=== PATIENT | male | born 1960 | race Caucasian/White ===

== ENCOUNTER 2017-03-02 13:58 | Inpatient (IN) ==
[2017-03-02] MEDS ORDERED: Ipratropium/Albuterol Neb 3 ML IH ONE (14:13)
[2017-03-02] MEDS ORDERED: methylPREDNISolone 125 MG/2 ML VIAL IVP ONE (14:18)
--- NOTE | 2017-03-02 14:20 | Emergency Department Note ---
Disposition Clinical Impression: Bronchopneumonia, Lung mass, COPD exacerbation Disposition: Admitted As Inpatient Condition: Fair General Adult HPI - General Chief complaint: ED Shortness of Breath/Dyspnea Stated complaint: SUNNY Time Seen by Provider: 03/02/17 14:07 Source: EMS Limitations: no limitations Nursing Notes Reviewed: Yes Vital Signs Reviewed: Yes - History of Present Illness HPI Narrative: 56-year-old male who reports he has had 2 weeks of cough, central chest pressure. He admits to smoking for 40 years. He denies any known history of COPD. He denies having productive sputum. He denies any new lower extremity edema. He says that his shortness of breath and cough are worse with exertion and if he lays supine. He denies knowing if he has had fever at home. He does admit to a history of chronic low back pain and hypertension. He received a DuoNeb by EMS which he said helped substantially Radiation: non-radiation Pain Severity: moderate Pain Scale: 8 Consistency: constant Improves with: nothing Associated symptoms: Reports: denies other symptoms Treatments Prior to Arrival: none - Related Data Allergies Allergy/AdvReac Type Severity Reaction Status Date / Time No Known Allergies Allergy Verified 03/02/17 13:59 All systems ED: reviewed and negative except as stated. Constitutional: Denies: fever Eyes: Denies: vision change ENT ED: Denies: throat pain Cardiovascular: Reports: chest pain ((Pressure)) Respiratory: Reports: cough, dyspnea, wheezes Gastrointestinal: Denies: abdominal pain Musculoskeletal: Reports: back pain Integumentary: Denies: rash Neurological: Denies: headache Endocrine: Reports: fatigue Past Medical History - Past Medical History Medical history: Reports: hypertension Psychiatric history: Reports: no psych history - Social History Smoking Status: Current every day smoker Smokeless Tobacco Status: No Alcohol use: Reports: occasionally Drug use: Reports: none Physical Exam - General Limitations: no limitations General appearance: alert, in distress - Head Head exam: atraumatic - Eye Eye exam: Present: normal appearance, PERRL - ENT ENT exam: normal exam, normal oropharynx - Neck Neck exam: Present: normal inspection - Chest Chest inspection: Present: normal inspection - Respiratory Respiratory exam: Present: other (Course lung sounds in the bases and symmetric or wheezes) - Abdominal Exam Abdominal exam: Present: soft, Non-Tender - Extremities Exam Extremities exam: Present: pedal edema (1+ pedal edema equal bilaterally) - Neurological Exam Neurological exam: Present: alert, oriented X3 - Psychiatric Psychiatric exam: Present: normal affect, normal mood Course Course Narrative: After duoneb treatment he has significantly more wheezing. Gave more albuterol and magnesium which improved it. CTA shows a lung mass and bronchopneumonia. SPO2 is maintained on nasal cannula. He does have increased work of breathing but no distress. VBG is stable. Will admit. [facility] accepts. Vital Signs Temperature 100.9 F H 03/02/17 14:00 Pulse Rate 85 03/02/17 14:00 Respiratory Rate 20 03/02/17 14:00 Blood Pressure 166/104 03/02/17 14:00 O2 Sat by Pulse Oximetry 96 03/02/17 14:00 Temperature 100.9 F H 03/02/17 14:00 Pulse Rate 84 03/02/17 15:40 Respiratory Rate 18 03/02/17 16:21 Blood Pressure 145/83 03/02/17 16:21 O2 Sat by Pulse Oximetry 96 03/02/17 15:40 Oxygen Delivery Oxygen Delivery Simple Mask Medical Decision Making - Medical Records Medical records reviewed: Yes I reviewed the patient's medical records. - Lab Data Lab results reviewed: Yes I reviewed the patient's lab results. Result diagrams: 03/02/17 14:10 03/02/17 14:10 Lab Results 03/02/17 03/02/17 03/02/17 Range/Units 14:10 14:10 14:10 WBC 9.5 (4.3-11.1) K/mcL RBC 4.78 (4.19-5.50) M/mcL Hgb 15.5 (12.9-16.9) g/dL Hct 46.0 (37.5-50.1) % MCV 96.2 (83.0-100.0) fL MCH 32.4 (28.0-33.3) pg MCHC 33.7 (31.6-35.5) g/dL RDW 15.6 H (11.5-14.5) % Plt Count 252 (140-400) K/mcL MPV 9.4 (9.4-12.4) fL Immature Gran % 0.3 (0-4) % Seg Neutrophils % 69.5 % Lymphocytes % 15.7 % Monocytes % 14.0 % Eosinophils % 0.2 % Basophils % 0.3 % Neutrophils # 6.6 (1.6-8.9) K/mcL Lymphocytes # 1.5 (0.6-4.6) K/mcL Monocytes # 1.3 (0.0-1.3) K/mcL Eosinophils # 0.0 (0.0-0.6) K/mcL Basophils # 0.0 (0.0-0.2) K/mcL D-Dimer (0-500) ng/mLFEU Sodium 136 (136-145) mEq/L Potassium 3.2 L (3.5-5.1) mEq/L Chloride 101 (98-107) mEq/L Carbon Dioxide 27 (23-29) mEq/L BUN 10 (6-20) mg/dL Creatinine 0.78 (0.70-1.30) mg/dL Est GFR ( Amer) > 60 (> 60) Est GFR (Non-Af Amer) > 60 (> 60) BUN/Creatinine Ratio 13 (6-26) Glucose 110 H (70-105) mg/dL Calculated Osmolality 282 (280-300) Lactic Acid (0.5-2.2) mmol/L Calcium 8.7 (8.6-10.3) mg/dL Troponin I < 0.03 (< 0.04) ng/mL B-Natriuretic Peptide (Less than 100) pg/mL 03/02/17 03/02/17 03/02/17 Range/Units 14:10 14:10 14:27 WBC (4.3-11.1) K/mcL RBC (4.19-5.50) M/mcL Hgb (12.9-16.9) g/dL Hct (37.5-50.1) % MCV (83.0-100.0) fL MCH (28.0-33.3) pg MCHC (31.6-35.5) g/dL RDW (11.5-14.5) % Plt Count (140-400) K/mcL MPV (9.4-12.4) fL Immature Gran % (0-4) % Seg Neutrophils % % Lymphocytes % % Monocytes % % Eosinophils % % Basophils % % Neutrophils # (1.6-8.9) K/mcL Lymphocytes # (0.6-4.6) K/mcL Monocytes # (0.0-1.3) K/mcL Eosinophils # (0.0-0.6) K/mcL Basophils # (0.0-0.2) K/mcL D-Dimer 407 (0-500) ng/mLFEU Sodium (136-145) mEq/L Potassium (3.5-5.1) mEq/L Chloride (98-107) mEq/L Carbon Dioxide (23-29) mEq/L BUN (6-20) mg/dL Creatinine (0.70-1.30) mg/dL Est GFR ( Amer) (> 60) Est GFR (Non-Af Amer) (> 60) BUN/Creatinine Ratio (6-26) Glucose (70-105) mg/dL Calculated Osmolality (280-300) Lactic Acid 1.8 (0.5-2.2) mmol/L Calcium (8.6-10.3) mg/dL Troponin I (< 0.04) ng/mL B-Natriuretic Peptide 345 H (Less than 100) pg/mL - Radiology Data Radiology results reviewed: Yes I reviewed the patient's radiology results. - EKG Data EKG #1 EKG attestation: Yes I reviewed and interpreted this EKG. EKG shows normal: sinus rhythm Rate: normal Attestation Statement - Attestation Attestation: I examined this patient and my medical decision-making was reviewed with the Resident Physician. I agree with the documented findings, disposition and treatment plan as described except to the extent set forth below. Patient presents to the ED complaining of shortness of breath. Increasing over the past 2 weeks. Worse with exertion and states supine position. Patient has a significant smoking history. Patient is visibly dyspneic on exam with accessory muscle use and tachypnea. Diffuse wheezing. Plan. Patient improved with nebs. Still hypoxic on 3 L. We will try another neb. Increase oxygen. Flu swab pending. Cardiac workup is unremarkable. He does have a new right bundle-branch block on EKG. Patient will be admitted. CTA pending. Bronchopneumonia on CTA. Mass. Patient is given taken to the floor. Levaquin was ordered. We will discuss with hospitalist.
[2017-03-02 14:21] LABS: Basophils % 0.3 %; Eosinophils % 0.2 %; Hemoglobin 15.5 g/dL (12.9-16.9); Immature Granulocytes % 0.3 % (0-4); Lymphocytes # 1.5 K/mcL (0.6-4.6); Lymphocytes % 15.7 %; Mean Corpuscular HGB Conc 33.7 g/dL (31.6-35.5); Mean Corpuscular Hemoglobin 32.4 pg (28.0-33.3); Mean Corpuscular Volume 96.2 fL (83.0-100.0); Mean Platelet Volume 9.4 fL (9.4-12.4); Monocytes # 1.3 K/mcL (0.0-1.3); Neutrophils # 6.6 K/mcL (1.6-8.9); Platelet Count 252 K/mcL (140-400); Red Blood Count 4.78 M/mcL (4.19-5.50); Red Cell Distribution Width 15.6 % (11.5-14.5); Segmented Neutrophils % 69.5 %
[2017-03-02 14:33] LABS: BUN/Creatinine Ratio 13 (6-26); Blood Urea Nitrogen 10 mg/dL (6-20); Calcium 8.7 mg/dL (8.6-10.3); Carbon Dioxide 27 mEq/L (23-29); Chloride 101 mEq/L (98-107); Glucose 110 mg/dL (70-105); Osmolality,Calculated 282 (280-300); Potassium 3.2 mEq/L (3.5-5.1); Sodium 136 mEq/L (136-145); eGFR For African Americans > 60 (> 60); eGFR For Non-African Americans > 60 (> 60)
[2017-03-02] MEDS ORDERED: Albuterol 2.5 MG/3 ML NEBULIZER IH SCH (15:30)
[2017-03-02] MEDS ORDERED: Levofloxacin 750 MG/150 ML 750 MG/150 ML BAG IVPB ONE (16:01)
[2017-03-02 16:18] LABS: VBG HCO3 27 mEq/L (21-27); VBG PCO2 50 mmHg (41-51); VBG PH 7.34 pH Units (7.32-7.42); VBG PO2 36 mmHg (25-50)
[2017-03-02] MEDS ORDERED: Albuterol 2.5 MG/3 ML NEBULIZER IH PRN (17:01)
[2017-03-02] MEDS ORDERED: Naloxone 0.4 MG/ML INJ IVP PRN (17:20)
--- NOTE | 2017-03-02 17:27 | Internal Med History&Physical ---
<Darin Rodriguez - Last Filed: 03/02/17 20:43> Date of Encounter: 03/02/17 Time of Encounter: 17:24 Assessment and Plan (1) Bronchopneumonia Current visit: Yes Status: Acute Presents with dyspnea due to bronchopneumonia. No prior h/o structural lung disease. He was febrile on arrival otherwise no other SIRS criteria met. Does not appear septic. ABG is unremarkable. He continues to be dyspneic with activity reports more comfort with rest. He is requiring 10L HF nasal cannula to maintain Spo2 greater than 92%. -No recent hospitalizations or antibiotic use; diagnosis of CAP -Start IV levaquin now -Blodd cultures sent -CBCD, BMP in the am -Heparin 5000 units SC BID -Respiratory support per nasal cannula; goal to maintain SPO2 greater than 92% -Continuous telemetry, continuous SaO2 monitoring (2) Lung mass Current visit: Yes Status: Acute Reporting fever, chills, fatigue and night sweats for approximately the last month. Presents today with cough greater than 2 weeks as well as centralized chest sugar and dyspnea. CTA obtained in the ED negative for PE revealed left apical lung mass and bronchopneumonia. See plan above (3) COPD exacerbation Current visit: Yes Status: Acute Presents here with cough and severe dyspnea 2 weeks. Initially had inspiratory and expiratory wheezes on the emergency department. Wheezing subsided after duoneb treatment and Magnesium. Continue to be dyspneic, he has a diagnosis of bronchopneumonia. Additionally, he is not diagnosed for new left upper lobe lung mass. See plan above (4) DVT prophylaxis Current visit: Yes Status: Acute Heprin 5000 units SC BID Internal Medicine - H&P: HPI Chief complaint: dyspnea, chills, night sweats, and fatigue Admitted From: Home Plans for Post Hospital Care: Home History of present illness: Mr. Mancera is a 56 year old male with a PMH of CVA and HTN. He presents today with severe dyspnea and chest pain. Additionally the patient was complaining of severe chest pressure stating "I feel like a truck sitting on my chest". He reports he has had a cough that is coarse and nonproductive over the last 2 weeks. He is a 1-1/2 pack per day smoker for the last 40 years. Denies any prior history of COPD or emphysema. He admits to fever, chills, fatigue and severe night sweats. Denies any nausea, vomiting, diarrhea, abdominal pain or unilateral extremity swelling or pain. CTA of chest emergency department completed and showed left apical lung mass as well as bronchopneumonia. Past Med Surg Social Fam HX - Past Medical History Medical history: hypertension Psychiatric history: no psych history - Social History Smoking Status: Current every day smoker Smokeless Tobacco Status: No Alcohol use: occasionally Drug use: none - Family History Mother Hx Family Neurologic Disorders: Yes (CVA) Internal Medicine - H&P: Meds 3 Allergy/AdvReac Type Severity Reaction Status Date / Time No Known Allergies Allergy Verified 03/02/17 13:59 All Systems PM: A 10-system review of systems was performed and is negative for pertinent findings except as documented above in the HPI. - Constitutional Constitutional: as per HPI - Cardiovascular Cardiovascular ROS IM: as per HPI - Respiratory Respiratory: as per HPI - Gastrointestinal Gastrointestinal: as per HPI - Musculoskeletal Musculoskeletal ROS IM: as per HPI - Integumentary Integumentary IM: no rash, no unusual bruising - Neurological Neurological ROS: no confusion, no convulsions, no focal weakness, no numbness, no tingling, no tremor(s) - Constitutional Vitals: Temp Pulse Resp BP Pulse Ox 100.9 F H 84 18 145/83 96 03/02/17 14:00 03/02/17 15:40 03/02/17 16:21 03/02/17 16:21 03/02/17 15:40 General appearance: Present: A&O X 0, A&O X 3, pleasant, answers questions appropriately - Head Head exam: Present: atraumatic, normocephalic - Neck Neck exam general surgery: Present: supple, trachea midline. Absent: lymphadenopathy - Respiratory Respiratory exam: Present: prolonged expiratory phase, respiratory distress, rhonchi (Anterior and posterior left greater than right), tachypnea. Absent: accessory muscle use, chest wall tenderness, decreased breath sounds, CTAB, rales, stridor, wheezes - Cardiovascular Cardiovascular exam: Present: RRR, +S1, +S2. Absent: diastolic murmur, gallop, rubs, systolic murmur - GI/Abdominal GI/Abdominal exam: Present: normal bowel sounds, soft, no peritoneal signs. Absent: distended, tenderness - Extremities Exam Extremities exam: Present: warm, radial pulses palpable and symmetrical. Absent : calf tenderness, cyanotic, pedal edema - Neurological Exam Neurological exam: Present: alert, oriented X3. Absent: facial droop, speech deficit - Skin Skin exam: Present: dry, intact Internal Med - H&P Results - Labs CBC & Chem 7: 03/02/17 14:10 03/02/17 14:10 - ABG Interpretation ABG results: 03/02/17 16:13 VBG pH 7.34 VBG pCO2 50 VBG pO2 36 VBG HCO3 27 - EKG Data -: EKG Interpreted by Myself EKG shows normal: sinus rhythm Rate: normal - Diagnostic Studies Chest x-ray Status: image reviewed by me Additional comments: No acute pulmonary process. Chest x-ray CT scan - chest Status: image reviewed by me Additional comments: 1. No pulmonary embolus is identified. 2. Diffuse airway thickening and peripheral nodularity in the posterior basal right lower lobe, concerning for bronchopneumonia. 3. 10 x 10 x 17 mm, concerning appearing nodule in the apico-posterior left upper lobe. Tissue sampling warranted. <Jameson Kendall P - Last Filed: 03/03/17 19:48> Date of Encounter: 03/03/17 Internal Medicine - H&P: HPI History of present illness: Mr. Mancera is a 56 year old male All Systems PM: A 10-system review of systems was performed and is negative for pertinent findings except as documented above in the HPI. - Constitutional Vitals: Temp Pulse Resp BP Pulse Ox 98.0 F 90 18 157/89 99 03/03/17 19:22 03/03/17 19:22 03/03/17 19:22 03/03/17 19:22 03/03/17 19:22 Internal Med - H&P Results - Labs CBC & Chem 7: 03/03/17 04:42 03/03/17 04:42 Labs: Short CBC 03/03/17 Range/Units 04:42 WBC 19.4 H D (4.3-11.1) K/mcL Hgb 13.5 D (12.9-16.9) g/dL Hct 39.8 (37.5-50.1) % Plt Count 208 (140-400) K/mcL Neutrophils # 17.5 H (1.6-8.9) K/mcL BMP 03/03/17 04:42 Sodium 136 Potassium 3.8 Chloride 101 Carbon Dioxide 28 BUN 11 Creatinine 0.65 L Glucose 165 H Calcium 8.9 - Impressions ITS Impressions Echocardiogram 03/03/17 09:40 Impressions: LVEF 40-50%. Mild left ventricular diastolic dysfunction. Normal right ventricular structure and function. Mildly dilated left atrium. Left Ventricular Wall Motion: Rest Echo Findings The apex, apical inferior, mid inferior, basal inferior, apical anterior, mid anterior, basal anterior, apical septal, mid inferior septal, basal inferior septal, apical lateral, mid anterior lateral, basal anterior lateral, mid anterior septal, mid inferior lateral, basal anterior septal and basal inferior lateral serrano were hypokinetic. Findings: Study Quality * Technically adequate exam. ECG Findings * Normal sinus rhythm. Left Ventricle * LVEF 40-50%. * Mild left ventricular diastolic dysfunction. Right Ventricle * Normal right ventricular structure and function. Left Atrium * Mildly dilated left atrium. Right Atrium * Normal right atrial size. Interatrial Septum * No evidence of PFO by color Doppler. Aortic Valve * Aortic valve not well visualized. * Trace aortic regurgitation. Mitral Valve * Trace mitral regurgitation. Tricuspid Valve * Unable to estimate RVSP due to lack of TR jet. Pulmonic Valve * Pulmonic valve is not well visualized. Aorta * Normally sized aortic root. Pericardium * The pericardium appears normal. IVC * Normal IVC dimensions and inspiratory collapse. - Attending Attestation I examined this patient and my medical decision-making was reviewed with the Resident Physician/EVENT AV OPERATOR. I agree with the documented findings, disposition and treatment plan as described except to the extent set forth below.
[2017-03-02] MEDS: MethylPREDNISolone 40 MG/ML VIAL IVP SCH ×2 (17:45→23:36)
[2017-03-02] MEDS: *HR* Heparin 5,000 UNIT/ML VIAL SQ SCH (18:28)
[2017-03-02] MEDS: Ipratropium/Albuterol Neb 3 ML IH SCH ×2 (20:16→23:57)
[2017-03-02] MEDS: *HR* OxyCODONE Immed Rel 5 MG TABLET PO PRN (20:27)
[2017-03-02] MEDS ORDERED: Melatonin 3 MG TABLET PO ONE (21:21)
[2017-03-03] MEDS: *HR* OxyCODONE Immed Rel 5 MG TABLET PO PRN ×3 (03:41→18:28)
[2017-03-03] MEDS: Ipratropium/Albuterol Neb 3 ML IH SCH ×5 (04:07→19:43)
[2017-03-03] MEDS: *HR* Heparin 5,000 UNIT/ML VIAL SQ SCH ×2 (05:07→17:44)
[2017-03-03] MEDS: MethylPREDNISolone 40 MG/ML VIAL IVP SCH ×3 (05:08→17:44)
[2017-03-03 05:15] LABS: Basophils % 0.1 %; Hematocrit 39.8 % (37.5-50.1); Immature Granulocytes % 0.4 % (0-4); Lymphocytes % 2.8 %; Mean Corpuscular HGB Conc 33.9 g/dL (31.6-35.5); Mean Corpuscular Hemoglobin 32.4 pg (28.0-33.3); Mean Corpuscular Volume 95.4 fL (83.0-100.0); Mean Platelet Volume 9.8 fL (9.4-12.4); Monocytes # 1.2 K/mcL (0.0-1.3); Monocytes % 6.4 %; Neutrophils # 17.5 K/mcL (1.6-8.9); Platelet Count 208 K/mcL (140-400); Red Blood Count 4.17 M/mcL (4.19-5.50); Red Cell Distribution Width 15.7 % (11.5-14.5); Segmented Neutrophils % 90.3 %
[2017-03-03 05:16] LABS: Hemoglobin 13.5 g/dL (12.9-16.9); Lymphocytes # 0.5 K/mcL (0.6-4.6)
[2017-03-03 05:28] LABS: BUN/Creatinine Ratio 17 (6-26); Blood Urea Nitrogen 11 mg/dL (6-20); Calcium 8.9 mg/dL (8.6-10.3); Carbon Dioxide 28 mEq/L (23-29); Chloride 101 mEq/L (98-107); Glucose 165 mg/dL (70-105); Osmolality,Calculated 285 (280-300); Potassium 3.8 mEq/L (3.5-5.1); Sodium 136 mEq/L (136-145); eGFR For African Americans > 60 (> 60); eGFR For Non-African Americans > 60 (> 60)
[2017-03-03] MEDS: Levofloxacin 750 MG/150 ML 750 MG/150 ML BAG IVPB SCH (09:15)
--- NOTE | 2017-03-03 10:05 | Internal Med Progress Note ---
Date of Encounter: 03/03/17 Time of Encounter: 10:00 - Assessment and plan (1) Bronchopneumonia Current Visit: Yes Status: Acute Assessment and plan: CT chest shows no PE but RLL pneumonia/bronchitis along with MARGARITA 10*10*17mm mass /nodule. Continue empiric IV antibiotics, supportive care and supplemental O2; wean down FiO2 as tolerated, currently at 10L/min high flow O2; f/up blood cultures. Check respiratory viral panel; (2) Lung mass Current Visit: Yes Status: Acute Assessment and plan: MARGARITA mass on CTA chest, as above; Pulmonology consulted- patient will need CT- guided lung biopsy vs navigational bronchoscopy for tissue biopsy; suspected malignancy due to chronic smoking history; (3) COPD exacerbation Current Visit: Yes Status: Acute Assessment and plan: continues to have shortness of breath; continue IV steroids, empiric IV antibiotics, bronchodilators and supplemental O2; Pulmonology consulted; needs outpatient formal PFTs; smoking cessation advised; check respiratory viral panel ; (4) HTN (hypertension) Current Visit: Yes Status: Chronic Qualifiers: Hypertension type: essential hypertension Qualified Code(s): I10 - Essential (primary) hypertension (5) Tobacco abuse Current Visit: Yes Status: Chronic - Subjective Interval history: Reports persistent shortness of breath, chills and rigors; no chest pain, cough , nausea, vomiting, leg swelling; - Constitutional Vitals: Temp Pulse Resp BP Pulse Ox 98.2 F 80 18 148/80 100 03/03/17 03:55 03/03/17 03:55 03/03/17 03:55 03/03/17 03:55 03/03/17 03:55 General appearance: Present: A&O X 0, A&O X 3, answers questions appropriately - Respiratory Respiratory exam: Present: CTAB (coarse breath sounds B/L). Absent: accessory muscle use, rales, rhonchi, wheezes - Cardiovascular Cardiovascular exam: Present: RRR, +S1, +S2. Absent: diastolic murmur, gallop, rubs, systolic murmur - GI/Abdominal GI/Abdominal exam: Present: normal bowel sounds, soft, no peritoneal signs. Absent: distended, tenderness - Extremities Exam Extremities exam: Present: full ROM, warm, radial pulses palpable and symmetrical. Absent: calf tenderness, cyanotic, pedal edema - Neurological Exam Neurological exam: Present: CN II-XII intact, oriented X3, no focal deficits. Absent: pronater drift, facial droop, speech deficit Internal Medicine: Result - Labs CBC & Chem 7: 03/03/17 04:42 03/03/17 04:42 Labs: Short CBC 03/03/17 Range/Units 04:42 WBC 19.4 H D (4.3-11.1) K/mcL Hgb 13.5 D (12.9-16.9) g/dL Hct 39.8 (37.5-50.1) % Plt Count 208 (140-400) K/mcL Neutrophils # 17.5 H (1.6-8.9) K/mcL BMP 03/03/17 04:42 Sodium 136 Potassium 3.8 Chloride 101 Carbon Dioxide 28 BUN 11 Creatinine 0.65 L Glucose 165 H Calcium 8.9 - ABG Interpretation ABG results: PT/INR, D-dimer D-Dimer 407 ng/mLFEU (0-500) 03/02/17 14:10 Consult Discharge Plan - Plan Referrals: Rich Singer MD [Primary Care Provider] -
--- NOTE | 2017-03-03 10:12 | Pulmonology Consult Note ---
Date of Encounter: 03/03/17 Time of Encounter: 09:30 Assessment and Plan (1) Acute respiratory failure with hypoxia Current Visit: Yes Status: Acute Secondary most likely COPD exacerbation , BNP elevated will get an ECHO for systolic and diastolic dysfunction Put the O2 at 5 litres , to Keep SPO2 around 90% (2) COPD exacerbation Current Visit: Yes Status: Acute Patient CT imaging shows areas of air trapping suggestive of small airways disease with extensive smoking history suspect he has COPD will need outpatient PFT'S will treat with bronchodilators and steroids . Will need outpatient follow up in 6 weeks . To Keep SPO2 around 90-92% , brought down the O2 to 5 lpm .Patient Bicarb 28 suggestive of hypoventilation will day time ABG . (3) Lung nodule < 6cm on CT Current Visit: Yes Status: Acute The Nodule is left upper lobe apico-posterior segment no significant LN suspicious malignancy will need outpatient Super D Navigational bronchoscopy vs CT guided biopsy it can be done as an outpatient after the COPD exacerbation is resolved . (4) Nicotine addiction Current Visit: Yes Status: Acute Spoke extensively about smoking cessation. Qualifiers: Qualified Code(s): F17.200 - Nicotine dependence, unspecified, uncomplicated History of Present Illness Consult date: 03/03/17 Requesting physician: Humera Faye Reason for consult: dyspnea, cough, chest pain Chief complaint: Dyspnea ,Cough and Chest pain History of present illness: 56 year old male with past medical history significant for Chronic Smoker for 40 years , HTN , Chronic low back pain 2 week history significant for cough with not much sputum production, had some flu like symptoms the main complaint that brought him to the hospital chest pain or pressure , denies any syncope or palpitations in the ER was evaluated for ACS and PE , CTA no evidence of PE , but showed Right lower lobe bronchopneumonia , MARGARITA apico posterior segment nodule concerning for malignancy , pulmonary was consulted for biopsy . Denies any fever or chills or any other constitutional symptoms . Past Med Surg Social Fam HX - Past Medical History Medical history: hypertension Psychiatric history: no psych history - Social History Smoking Status: Current every day smoker Smokeless Tobacco Status: No Alcohol use: occasionally Drug use: none - Family History Mother Hx Family Neurologic Disorders: Yes (CVA) Medications and Allergies Aspirin 325 mg PO DAILY 03/03/17 [History] Citalopram Hydrobromide [Citalopram HBr] 40 mg PO DAILY 03/03/17 [History] Gabapentin [Neurontin] 600 mg PO TID 03/03/17 [History] Ibuprofen [Motrin] 800 mg PO DAILY 03/03/17 [History] Lisinopril [Zestril] 20 mg PO DAILY 03/03/17 [History] Promethazine [Phenergan] 25 mg PO BID PRN 03/03/17 [History] Simvastatin [Zocor] 40 mg PO HS 03/03/17 [History] Tizanidine HCl 4 mg PO BID 03/03/17 [History] 3 Allergy/AdvReac Type Severity Reaction Status Date / Time No Known Allergies Allergy Verified 03/02/17 13:59 All Systems: A 10-system review of systems was performed and is negative for pertinent findings except as documented above in the HPI. Physical Examination Effort: mildly labored Auscultation: right: diminished breath sounds, bilateral: wheezes Results - Laboratory Findings CBC and BMP: 03/03/17 04:42 03/03/17 04:42 PT/INR, D-dimer D-Dimer 407 ng/mLFEU (0-500) 03/02/17 14:10 Abnormal lab findings: Abnormal lab results WBC 19.4 K/mcL (4.3-11.1) H D 03/03/17 04:42 RBC 4.17 M/mcL (4.19-5.50) L 03/03/17 04:42 RDW 15.7 % (11.5-14.5) H 03/03/17 04:42 Neutrophils # 17.5 K/mcL (1.6-8.9) H 03/03/17 04:42 Lymphocytes # 0.5 K/mcL (0.6-4.6) L 03/03/17 04:42 Creatinine 0.65 mg/dL (0.70-1.30) L 03/03/17 04:42 Glucose 165 mg/dL (70-105) H 03/03/17 04:42 B-Natriuretic Peptide 345 pg/mL (Less than 100) H 03/02/17 14:10 - Clinical Findings Intake & Output: Intake & Output 03/02/17 03/03/17 03/03/17 23:59 07:59 15:59 Intake Total 250 / 250 50 / 50 Output Total 300 / 475 100 / 100 Balance -50 / -225 -50 / -50 Weight 77.655 kg Consult Discharge Plan - Plan Referrals: Rich Singer MD [Primary Care Provider] -
[2017-03-03 11:51] LABS: Adenovirus Not Detected (Not Detect); Bordetella Pertussis Not Detected (Not Detect); Chlamydophila pneumoniae Not Detected (Not Detect); Coronavirus 229E Not Detected (Not Detect); Coronavirus HKU1 Not Detected (Not Detect); Coronavirus NL63 Not Detected (Not Detect); Coronavirus OC43 Not Detected (Not Detect); Human Metapneumovirus Not Detected (Not Detect); Human Rhinovirus/Enterovirus Not Detected (Not Detect); Influenza A Subtype 2009 H1 Not Detected (Not Detect); Influenza A Untypeable Not Detected (Not Detect); Influenza B Not Detected (Not Detect); Mycoplasma pneumoniae Not Detected (Not Detect); Parainfluenza Virus 1 Not Detected (Not Detect); Parainfluenza Virus 2 Not Detected (Not Detect); Parainfluenza Virus 3 Not Detected (Not Detect); Parainfluenza Virus 4 Not Detected (Not Detect); Respiratory Syncytial Virus ***DETECTED*** (Not Detect)
[2017-03-03] MEDS ORDERED: Saline Nasal Spray 44 ML BOTTLE NS PRN (11:56)
[2017-03-03] MEDS: Budesonide/Formoterol 160/4.5 MDI IH SCH ×2 (16:14→19:44)
[2017-03-03] MEDS: Gabapentin 300 MG CAPSULE PO SCH (20:51)
[2017-03-04] MEDS: MethylPREDNISolone 40 MG/ML VIAL IVP SCH ×2 (00:01→06:18)
[2017-03-04] MEDS: Ipratropium/Albuterol Neb 3 ML IH SCH ×5 (00:17→16:18)
[2017-03-04 04:18] LABS: Basophils % 0.1 %; Hematocrit 40.6 % (37.5-50.1); Hemoglobin 13.6 g/dL (12.9-16.9); Immature Granulocytes % 0.5 % (0-4); Lymphocytes % 2.9 %; Mean Corpuscular HGB Conc 33.5 g/dL (31.6-35.5); Mean Corpuscular Hemoglobin 31.9 pg (28.0-33.3); Mean Corpuscular Volume 95.3 fL (83.0-100.0); Mean Platelet Volume 9.5 fL (9.4-12.4); Monocytes % 5.1 %; Platelet Count 242 K/mcL (140-400); Red Blood Count 4.26 M/mcL (4.19-5.50); Red Cell Distribution Width 15.7 % (11.5-14.5); Segmented Neutrophils % 91.4 %
[2017-03-04 04:19] LABS: Lymphocytes # 0.5 K/mcL (0.6-4.6); Monocytes # 0.9 K/mcL (0.0-1.3); Neutrophils # 15.9 K/mcL (1.6-8.9)
[2017-03-04 05:20] LABS: BUN/Creatinine Ratio 29 (6-26); Blood Urea Nitrogen 17 mg/dL (6-20); Calcium 9.2 mg/dL (8.6-10.3); Carbon Dioxide 30 mEq/L (23-29); Chloride 101 mEq/L (98-107); Glucose 144 mg/dL (70-105); Osmolality,Calculated 290 (280-300); Potassium 3.7 mEq/L (3.5-5.1); Sodium 138 mEq/L (136-145); eGFR For African Americans > 60 (> 60); eGFR For Non-African Americans > 60 (> 60)
[2017-03-04] MEDS: *HR* Heparin 5,000 UNIT/ML VIAL SQ SCH (06:18)
[2017-03-04 07:17] VITALS: BP 132/83
[2017-03-04] MEDS: Budesonide/Formoterol 160/4.5 MDI IH SCH (07:39)
[2017-03-04] MEDS ORDERED: Lisinopril 20 MG TABLET PO SCH (09:00)
[2017-03-04] MEDS ORDERED: Aspirin 325 MG TABLET PO SCH (09:00)
[2017-03-04] MEDS: Gabapentin 300 MG CAPSULE PO SCH (09:02)
[2017-03-04] MEDS: *HR* OxyCODONE Immed Rel 5 MG TABLET PO PRN (09:02)
[2017-03-04] MEDS: Levofloxacin 750 MG/150 ML 750 MG/150 ML BAG IVPB SCH (09:03)
[2017-03-04] MEDS ORDERED: Furosemide 20 MG/2 ML VIAL IVP ONE (10:35)
[2017-03-04] MEDS ORDERED: MethylPREDNISolone 40 MG/ML VIAL IVP SCH (10:45)
--- NOTE | 2017-03-04 10:48 | Pulmonology Progress Note ---
Date of Encounter: 03/04/17 Time of Encounter: 09:15 Assessment and Plan (1) COPD exacerbation Current Visit: Yes Status: Acute Patient stated he is feeling better and he wants to go home. Patient needs to be on oxygen to keep SPO2 around 90% and as long as he has follow-up with his primary care he can be discharged on taper steroids and antibiotics and treat as outpatient. (2) Lung nodule < 6cm on CT Current Visit: Yes Status: Acute I have explained to patient because of his risk factor this lung nodule must follow-up and because of his acute illness biopsy would be a high risk procedure. Patient can have short interval CT in about 6 weeks and then follow- up as outpatient. (3) Tobacco abuse Current Visit: Yes Status: Chronic Advised patient to quit smoking Subjective Principal diagnosis: Shortness of breath Interval history: Patient stated he is feeling much better and he wants to go home Objective PUL Vital signs: Last Vital Signs Temp 97.7 F 03/04/17 07:13 Pulse 85 03/04/17 07:13 Resp 20 03/04/17 07:13 BP 132/83 03/04/17 07:13 Pulse Ox 97 03/04/17 07:13 General appearance: no acute distress Eyes: nonicteric ENT: oropharynx moist Neck: supple, no lymphadenopathy Effort: normal Auscultation: bilateral: diminished breath sounds Percussion: bilateral: not dull Cardiovascular: regular rate and rhythm Gastrointestinal: normoactive bowel sounds, non-distended Extremities: no cyanosis normal mental status, non-focal exam mood appropriate Results - Laboratory Findings CBC and BMP: 03/04/17 03:54 03/04/17 03:54 PT/INR, D-dimer D-Dimer 407 ng/mLFEU (0-500) 03/02/17 14:10 Abnormal lab findings: Abnormal lab results WBC 17.4 K/mcL (4.3-11.1) H 03/04/17 03:54 RDW 15.7 % (11.5-14.5) H 03/04/17 03:54 Neutrophils # 15.9 K/mcL (1.6-8.9) H 03/04/17 03:54 Lymphocytes # 0.5 K/mcL (0.6-4.6) L 03/04/17 03:54 Carbon Dioxide 30 mEq/L (23-29) H 03/04/17 03:54 Creatinine 0.59 mg/dL (0.70-1.30) L 03/04/17 03:54 BUN/Creatinine Ratio 29 (6-26) H 03/04/17 03:54 Glucose 144 mg/dL (70-105) H 03/04/17 03:54 B-Natriuretic Peptide 345 pg/mL (Less than 100) H 03/02/17 14:10 RSV (PCR) DETECTED (Not Detect) A 03/03/17 10:50 - Microbiology Findings Microbiology Findings: Microbiology, Last 48 Hours 03/04/17 00:05 Legionella Antigen - Final Urine,Clean Catch - Diagnostic Findings CT scan - chest: report reviewed, image reviewed - Clinical Findings Intake & Output: Intake & Output 03/03/17 03/04/17 03/04/17 23:59 07:59 15:59 Intake Total 0 / 0 120 / 120 Balance 0 / 0 120 / 120 Weight 78.562 kg Consult Discharge Plan - Plan Referrals: Rich Singer MD [Primary Care Provider] -
--- NOTE | 2017-03-04 14:05 | Electrocardiograph Report ---
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
--- NOTE | 2017-03-04 14:58 | Discharge Summary ---
Date of Encounter: 03/04/17 Time of Encounter: 14:54 - Discharge Diagnosis (1) Bronchopneumonia Priority: Primary Status: Acute (2) Lung mass Priority: Primary Status: Chronic (3) COPD exacerbation Priority: Primary Status: Acute (4) HTN (hypertension) Priority: Secondary Status: Chronic Qualifiers: Hypertension type: essential hypertension Qualified Code(s): I10 - Essential (primary) hypertension (5) Tobacco abuse Priority: Secondary Status: Chronic (6) RSV bronchitis Priority: Primary Status: Acute - Discharge Medications Prescriptions: Budesonide/Formoterol 160/4.5 [Symbicort 160/4.5] 2 puff IH BIDR 30 Days inhaler HYDROcodone/Acet 5/325 mg [[place] 5-325 mg] 1 tab PO Q6H PRN #10 tab PRN Reason: Pain Levofloxacin [Levaquin] 750 mg PO DAILY #3 tablet Metoprolol [Lopressor] 12.5 mg PO BID #30 tablet predniSONE [PredniSONE] 40 mg PO DAILY 7 Days tablet Home Medications: Aspirin 325 mg PO DAILY 03/03/17 [History] Citalopram Hydrobromide [Citalopram HBr] 40 mg PO DAILY 03/03/17 [History] Gabapentin [Neurontin] 600 mg PO TID 03/03/17 [History] Ibuprofen [Motrin] 800 mg PO DAILY 03/03/17 [History] Lisinopril [Zestril] 20 mg PO DAILY 03/03/17 [History] Promethazine [Phenergan] 25 mg PO BID PRN 03/03/17 [History] Simvastatin [Zocor] 20 mg PO HS 03/03/17 [History] Tizanidine HCl 4 mg PO BID 03/03/17 [History] Budesonide/Formoterol 160/4.5 [Symbicort 160/4.5] 2 puff IH BIDR 30 Days inhaler 03/04/17 [Rx] HYDROcodone/Acet 5/325 mg [[place] 5-325 mg] 1 tab PO Q6H PRN #10 tab 03/04/17 [Rx ] Levofloxacin [Levaquin] 750 mg PO DAILY #3 tablet 03/04/17 [Rx] Metoprolol [Lopressor] 12.5 mg PO BID #30 tablet 03/04/17 [Rx] predniSONE [PredniSONE] 40 mg PO DAILY 7 Days tablet 03/04/17 [Rx] Allergies/Adverse Reactions: 3 Allergy/AdvReac Type Severity Reaction Status Date / Time No Known Allergies Allergy Verified 03/02/17 13:59 Procedures/tests Complete & Pending: Procedures Performed prior 72 hours Category Date Time Status EV echocardiogram Routine Y 03/03/17 09:40 Completed - Notes to Outpatient Provider Please repeat short interval CT chest in 6weeks, for MARGARITA lung nodule Please consider outpatient stress testing for decreased EF around 40-50%; Date of admission: 03/02/17 18:10 Primary care physician: Rich Singer MD Discharging clinician: Humera Faye Anticipated date of discharge: 03/04/17 - Patient Status Disposition: Home, Self-Care Condition: Fair Functional capacity at discharge: independent ambulation Overall status at discharge: patient is progressing back to baseline - Discharge Instructions Instructions: Chronic Obstructive Pulmonary Disease (DC) Follow Up With: Rich Singer MD [Primary Care Provider] - 03/08/17 9:45 am (Please follow up as schedule...) Forms: ED Satisfaction Letter Additional Instructions: F/up with PCP in 1-2 weeks F/up with Pulmonology as outpatient, in 6-8 weeks, after CT chest - Diet and Activity Activity: wear oxygen at all times Diet: low fat, low cholesterol, low salt diet Hospital course: Mr. Mancera is a 56 year old male with chronic smoking history and no significant medical problems, who was admitted with generalized weakness, cough and shortness of breath. CT chest done in the emergency room showed right lower lobe infectious process and left upper lobe nodule, concerning for malignancy given his smoking history. Patient was noted to have possible acute exacerbation of COPD and was started on empiric IV antibiotics, IV steroids, bronchodilators and supplemental oxygen. He was initially requiring high flow oxygen at 10 L/m, and his oxygen requirements gradually improved during his hospital stay. Respiratory viral panel was sent and patient tested positive for RSV and he likely has acute viral bronchopneumonia. Pulmonology was consulted and recommended outpatient follow-up for short interval repeat CT chest and possible biopsy of left upper lobe nodule. He verbalized understanding and agrees to follow-up. He is currently medically stable for discharge on oral antibiotics and steroids. He is no longer requiring supplemental oxygen and is saturating well on room air. He reported significant chronic back pain for which she has been on narcotic pain medications for the last few years and is currently unable to get up from his primary care provider. Hence, he is being discharged on a few pills of hydrocodone/acetaminophen, and encouraged to f/up with PCP; he was counseled extensively about smoking cessation and he is willing to consider cutting down and quitting smoking. - Time Spent with Patient Total time spent providing and/or coordinating discharge services: Greater than 30 minutes (45 min) - Constitutional Vitals: Temp Pulse Resp BP Pulse Ox 97.7 F 85 18 132/83 97 03/04/17 07:13 03/04/17 07:13 03/04/17 10:56 03/04/17 07:13 03/04/17 10:56 General appearance: Present: A&O X 3, answers questions appropriately - Respiratory Respiratory exam: Present: CTAB, wheezes (mild end expiratory wheezing B/L bases ). Absent: accessory muscle use, rales, rhonchi - Cardiovascular Cardiovascular exam: Present: RRR, +S1, +S2. Absent: diastolic murmur, gallop, rubs, systolic murmur
[2017-03-11 09:16] LABS: Mycoplasma pneumoniae IgG 0.41 U/L (<=0.09)
== END 2017-03-04 16:58 | disposition home or self-care (01) | DRG 193 ==
LOC: EMEROO 13:58 → 2ANU 13:58
PROVIDERS: ADMIT Internal Medicine; ATTEND Internal Medicine

== ENCOUNTER 2017-10-24 21:15 | Inpatient (IN) ==
--- NOTE | 2017-10-24 21:28 | Emergency Department Note ---
Disposition Clinical Impression: Pneumothorax, left Disposition: Admitted As Inpatient Condition: Good Referrals: Rich Singer MD [Primary Care Provider] - Forms: ED Satisfaction Letter Time of Disposition: 00:18 General Adult HPI - General Chief complaint: ED Shortness of Breath/Dyspnea Stated complaint: + pneumothorax from x-ray today Time Seen by Provider: 10/24/17 21:21 Source: patient Mode of arrival: ambulatory Limitations: no limitations - History of Present Illness HPI Narrative: This is a 56-year-old male who was sent to the emergency department by radiology. He had a lung biopsy yesterday for a mass in his left lung, and had return for his follow-up chest x-ray. A small pneumothorax was identified and he was encouraged to come to the emergency department. He denies shortness of breath or chest pain. He said he has felt better in the last 3 days that he has a long time. - Related Data Home Medications Medication Instructions Recorded Confirmed Aspirin 325 mg PO DAILY 03/03/17 03/03/17 Citalopram Hydrobromide 40 mg PO DAILY 03/03/17 03/03/17 [Citalopram HBr] Gabapentin [Neurontin] 600 mg PO TID 03/03/17 03/03/17 Ibuprofen [Motrin] 800 mg PO DAILY 03/03/17 03/03/17 Lisinopril [Zestril] 20 mg PO DAILY 03/03/17 03/03/17 Promethazine [Phenergan] 25 mg PO BID PRN 03/03/17 03/03/17 Simvastatin [Zocor] 20 mg PO HS 03/03/17 03/03/17 Tizanidine HCl 4 mg PO BID 03/03/17 03/03/17 Previous Rx's Medication Instructions Recorded Budesonide/Formoterol 160/4.5 2 puff IH BIDR 30 Days inhaler 03/04/17 [Symbicort 160/4.5] HYDROcodone/Acet 5/325 mg [[place] 1 tab PO Q6H PRN #10 tab 03/04/17 5-325 mg] Levofloxacin [Levaquin] 750 mg PO DAILY #3 tablet 03/04/17 Metoprolol [Lopressor] 12.5 mg PO BID #30 tablet 03/04/17 predniSONE [PredniSONE] 40 mg PO DAILY 7 Days tablet 03/04/17 Allergies Allergy/AdvReac Type Severity Reaction Status Date / Time No Known Allergies Allergy Verified 10/24/17 21:24 All systems ED: reviewed and negative except as stated. Cardiovascular: Reports: other (Chest heaviness, less than typical) Past Medical History - Past Medical History Medical history: Reports: CVA, hypertension Surgical history: Reports: non-contributory Psychiatric history: Reports: anxiety, depression - Social History Smoking Status: Current every day smoker Smokeless Tobacco Status: No Alcohol use: Reports: heavy, recent Drug use: Reports: none Physical Exam - General Limitations: no limitations General appearance: alert, in no apparent distress - Head Head exam: atraumatic, normocephalic, normal inspection - Eye Eye exam: Present: normal appearance, PERRL, EOMI - Chest Chest inspection: Present: normal inspection, symmetric chest wall rise - Respiratory Respiratory exam: Present: normal lung sounds bilaterally. Absent: respiratory distress, accessory muscle use, prolonged expiratory phase - Cardiovascular Cardiovascular exam: Present: regular rate, normal rhythm, normal heart sounds - Abdominal Exam Abdominal exam: Present: soft, Non-Tender. Absent: tenderness, distention, guarding, rebound, rigidity - Extremities Exam Extremities exam: Present: normal inspection, full ROM. Absent: tenderness, pedal edema - Neurological Exam Neurological exam: Present: alert, oriented X3 - Psychiatric Psychiatric exam: Present: normal affect, normal mood - Skin Skin exam: Present: warm, dry, intact, normal color Course Course Narrative: This is a 56-year-old male with apparently small pneumothorax after a left lung biopsy yesterday. He is asymptomatic, and appears appropriate for symptomatic treatment and high flow oxygen. Vital Signs Temperature 98.1 F 10/24/17 21:25 Pulse Rate 105 10/24/17 21:25 Respiratory Rate 18 10/24/17 21:25 Blood Pressure 130/90 10/24/17 21:25 O2 Sat by Pulse Oximetry 98 10/24/17 21:25 Temperature 98.1 F 10/24/17 21:25 Pulse Rate 95 10/24/17 23:33 Respiratory Rate 16 10/24/17 23:33 Blood Pressure 139/89 10/24/17 23:33 O2 Sat by Pulse Oximetry 100 10/24/17 23:33 Oxygen Delivery Oxygen Delivery [] Nasal Cannula Oxygen Delivery [] Nasal Cannula Oxygen Delivery [] Nasal Cannula Oxygen Delivery [] Nasal Cannula Oxygen Delivery Nasal Cannula Procedures - Chest Tube Chest Tube 1 Chest Tube Location: left Size of Tube (cm): 8 Chest Tube Prep: sterile drapes applied, other Local Anesthetic: lidocaine 1% Amount of Anesthesia Used (mL): 10 Incision Made With: #11 blade Post Procedure: sutured to skin, sterile dressing applied Tube Drainage: other (Air) Post Procedure CXR?: Yes (Postprocedure chest x-ray shows improved inflation of the left lung) Patient Tolerated Procedure: Yes - Procedural Sedation Indication: other (Pleural catheter insertion) Dietary Status: unknown H&P (including ROS) documented in medical record: Yes Previous reaction to sedatives/anesthetics: No Dentition: No loose teeth or bridges Airway Assessment: Patient can open mouth completely, TMJ function normal Possible difficult airway: No ASA Classification: CLASS III-Severe systemic disease Plan of Care: Pt appropriate candidate for procedure/moderate/conscious sedation , Risks/benefits of procedure/sedation discussed w/ patient/family, If not NPO; Risk of intake outweiged by necessity to perform procedure Preparation: cardiac monitor technician applied, pulse oximeter, supplemental O2 applied, suction/airway equipment at bedside, IV secured Fentanyl: IV Fentanyl Dose: 8 Patient Tolerated Procedure: well Complications: none Medical Decision Making - MDM Narrative Medical decision making narrative: This is a 56-year-old male with a pneumothorax status post left lung biopsy. A pleural catheter has been placed with him improvement in the inflation of the left lung. I discussed his case with the on-call hospitalist, who accepted him for admission. - Lab Data Lab results narrative: CBC shows anemia at 12.3 and 36.8 BMP was unremarkable Troponin was Result diagrams: 10/24/17 21:51 10/24/17 21:51 Lab Results 10/24/17 10/24/17 Range/Units 21:51 21:51 WBC 8.8 (4.3-11.1) K/mcL RBC 3.72 L (4.19-5.50) M/mcL Hgb 12.3 L D (12.9-16.9) g/dL Hct 36.8 L (37.5-50.1) % MCV 98.9 (83.0-100.0) fL MCH 33.1 (28.0-33.3) pg MCHC 33.4 (31.6-35.5) g/dL RDW 15.3 H (11.5-14.5) % Plt Count 192 (140-400) K/mcL MPV 9.3 L (9.4-12.4) fL Immature Gran % 0.2 (0-4) % Seg Neutrophils % 50.5 % Lymphocytes % 33.1 % Monocytes % 12.2 % Eosinophils % 3.4 % Basophils % 0.6 % Neutrophils # 4.4 (1.6-8.9) K/mcL Lymphocytes # 2.9 (0.6-4.6) K/mcL Monocytes # 1.1 (0.0-1.3) K/mcL Eosinophils # 0.3 (0.0-0.6) K/mcL Basophils # 0.1 (0.0-0.2) K/mcL Sodium 140 (136-145) mEq/L Potassium 4.4 (3.5-5.1) mEq/L Chloride 110 H (98-107) mEq/L Carbon Dioxide 26 (23-29) mEq/L BUN 24 H (6-20) mg/dL Creatinine 0.91 (0.70-1.30) mg/dL Est GFR ( Amer) > 60 (> 60) Est GFR (Non-Af Amer) > 60 (> 60) BUN/Creatinine Ratio 26 (6-26) Glucose 113 H (70-105) mg/dL Calculated Osmolality 295 (280-300) Calcium 8.5 L (8.6-10.3) mg/dL Troponin I < 0.03 (< 0.04) ng/mL - Radiology Data Radiology results reviewed: Yes I reviewed the patient's radiology results. Chest x-ray after the pleural catheter was inserted showed a small pneumothorax with much improved inflation of the left lung - EKG Data EKG #1 EKG attestation: Yes I reviewed and interpreted this EKG. EKG results narrative: ECG shows sinus rhythm with right bundle branch block, 97 bpm, normal intervals , normal axis, T-wave inversions in V1 through V3, slight ST depression in V3 Critical Care Time Critical Care Time: Yes Total Critical Care Time: 25 Attestation: 25 minutes of critical care time was invested independent of separately billable procedures.
[2017-10-24 22:10] LABS: Basophils # 0.1 K/mcL (0.0-0.2); Basophils % 0.6 %; Eosinophils # 0.3 K/mcL (0.0-0.6); Eosinophils % 3.4 %; Hematocrit 36.8 % (37.5-50.1); Immature Granulocytes % 0.2 % (0-4); Lymphocytes # 2.9 K/mcL (0.6-4.6); Lymphocytes % 33.1 %; Mean Corpuscular HGB Conc 33.4 g/dL (31.6-35.5); Mean Corpuscular Hemoglobin 33.1 pg (28.0-33.3); Mean Corpuscular Volume 98.9 fL (83.0-100.0); Mean Platelet Volume 9.3 fL (9.4-12.4); Monocytes # 1.1 K/mcL (0.0-1.3); Monocytes % 12.2 %; Neutrophils # 4.4 K/mcL (1.6-8.9); Platelet Count 192 K/mcL (140-400); Red Blood Count 3.72 M/mcL (4.19-5.50); Red Cell Distribution Width 15.3 % (11.5-14.5); Segmented Neutrophils % 50.5 %
[2017-10-24 22:11] LABS: Hemoglobin 12.3 g/dL (12.9-16.9)
[2017-10-24] MEDS ORDERED: *HR* Etomidate 20 MG/10 ML AMPUL IVP ONE (22:18)
[2017-10-24] MEDS ORDERED: *HR* FentaNYL (PF) 100 MCG/2 ML VIAL IVP ONE (22:19)
[2017-10-24 22:30] LABS: BUN/Creatinine Ratio 26 (6-26); Blood Urea Nitrogen 24 mg/dL (6-20); Calcium 8.5 mg/dL (8.6-10.3); Carbon Dioxide 26 mEq/L (23-29); Chloride 110 mEq/L (98-107); Glucose 113 mg/dL (70-105); Osmolality,Calculated 295 (280-300); Potassium 4.4 mEq/L (3.5-5.1); Sodium 140 mEq/L (136-145); Troponin I < 0.03 ng/mL (< 0.04); eGFR For Non-African Americans > 60 (> 60)
[2017-10-24] MEDS ORDERED: *HR* HYDROmorphone 2 MG/ML SYRINGE IVP ONE (23:35)
[2017-10-25] MEDS ORDERED: Naloxone 0.4 MG/ML INJ IVP PRN (01:39)
[2017-10-25] MEDS ORDERED: Ibuprofen 400 MG TABLET PO PRN (01:39)
[2017-10-25] MEDS: traMADol 50 MG TABLET PO PRN ×3 (03:43→16:14)
--- NOTE | 2017-10-25 04:09 | Internal Med History&Physical ---
Date of Encounter: 11/01/17 Time of Encounter: 04:01 Internal Medicine - H&P: HPI Chief complaint: Pneumothorax History of present illness: Mr. Mancera is a 56 year old male with a past medical history of COPD, CVA and hypertension who was sent to the emergency department by radiology after discovery of a small pneumothorax was identified on x-ray imaging. Patient had a lung biopsy yesterday for a mass in his left lung, and had returned for his follow-up chest x-ray. He denies shortness of breath or chest pain. He currently has nonpleuritic pain around left posterior thorax near his left shoulder blade. Patient had previously been on opioids for chronic back pain and was subsequently weaned off narcotics by his PCP. Past Med Surg Social Fam HX - Past Medical History Medical history: CVA, hypertension Additional medical history: Lung Mass Psychiatric history: anxiety, depression - Past Surgical History Surgical History: non-contributory - Social History Smoking Status: Current every day smoker Smokeless Tobacco Status: No Alcohol use: heavy, recent Drug use: none - Family History Mother Hx Family Neurologic Disorders: Yes (CVA) Internal Medicine - H&P: Meds Citalopram Hydrobromide [Citalopram HBr] 40 mg PO DAILY 03/03/17 [History] Gabapentin [Neurontin] 600 mg PO TID 03/03/17 [History] Lisinopril [Zestril] 40 mg PO DAILY 03/03/17 [History] Promethazine [Phenergan] 25 mg PO BID PRN 03/03/17 [History] Simvastatin [Zocor] 20 mg PO HS 03/03/17 [History] Tizanidine HCl 4 mg PO BID 03/03/17 [History] Budesonide/Formoterol 160/4.5 [Symbicort 160/4.5] 2 puff IH BIDR 30 Days inhaler 03/04/17 [Rx] Tamsulosin HCl [Flomax] 0.4 mg PO DAILY 10/25/17 [History] Doxycycline 100 mg PO BID 1 Days #1 capsule 10/29/17 [Rx] HYDROcodone/Acet 5/325 mg [[place] 5-325 mg] 1 tab PO Q6H PRN 3 Days #12 tab 10/29 [Rx] predniSONE [PredniSONE] 40 mg PO DAILY 1 Days #1 tablet 10/29/17 [Rx] 3 Allergy/AdvReac Type Severity Reaction Status Date / Time No Known Allergies Allergy Verified 10/24/17 21:24 All Systems PM: A 10-system review of systems was performed and is negative for pertinent findings except as documented above in the HPI. - Constitutional Constitutional: no chills, no fever(s), no night sweats - EENT Eyes: no change in vision, no discharge, no pain, no photophobia Ears: no ear discharge, no ear pain, no tinnitus Nose, mouth and throat: no dysphagia, no nasal discharge, no neck pain, no sore throat - Cardiovascular Cardiovascular ROS IM: no chest pain, no diaphoresis, no dyspnea, no lightheadedness, no palpitations, no syncope - Respiratory Respiratory: no cough, no dyspnea, no wheezing, no excessive phlegm production - Gastrointestinal Gastrointestinal: no abdominal pain, no diarrhea, no hematemesis, no hematochezia, no melena, no nausea, no vomiting - Musculoskeletal Musculoskeletal ROS IM: no numbness, no tingling - Integumentary Integumentary IM: no rash, no unusual bruising - Neurological Neurological ROS: no confusion, no convulsions, no focal weakness, no numbness, no tingling, no tremor(s) - Hematologic/Lymphatic Hematologic/Lymphatic: no easy bruising - Constitutional Vitals: Temp Pulse Resp BP Pulse Ox 98 F 103 17 122/85 94 10/25/17 03:24 10/25/17 03:24 10/25/17 03:24 10/25/17 03:24 10/25/17 03:24 Exam: General: Alert and oriented 3; lying in bed in no acute distress Skin:Normal color, no rash, pleural catheter noted at left anterior chest wall. HEENT:EOM, pupils equal, round and reactive. Cardiovascular:Normal S1 & S2, no rubs, murmurs or gallops. No JVD. Pulse regular. Lungs:Normal breath sounds, no wheezes or crackles. Abdomen:Soft, non-tender, no rigidity. Extremities:No deformity, no edema or tenderness, no joint swelling or clubbing. Neurological:Normal cognition and motor skills. Pulses:Carotid and radial pulses normal +2. Rest of the physical exam is non contributory Internal Med - H&P Results - Labs CBC & Chem 7: 10/25/17 05:34 10/25/17 05:34 - Assessment and plan (1) Pneumothorax, left Status: Acute Assessment and plan: Pneumothorax in the setting recent lung biopsy. Based on most recent chest x- ray, remains estimated at 2 cm in the vertical dimension at the apex. Patient not currently in any respiratory distress and breathing comfortably. Pleural catheter in place. Maintain to suction. Pain control. Pulmonary consult for the morning. (2) COPD (chronic obstructive pulmonary disease) Status: Chronic Assessment and plan: No evidence of COPD exacerbation at this time. We will continue home inhalers. Qualifiers: COPD type: unspecified COPD Qualified Code(s): J44.9 - Chronic obstructive pulmonary disease, unspecified (3) HTN (hypertension) Status: Chronic Assessment and plan: Blood pressure stable. Continue with home antihypertensives Qualifiers: Hypertension type: essential hypertension Qualified Code(s): I10 - Essential (primary) hypertension (4) DVT prophylaxis Status: Acute Assessment and plan: Pneumatic compression devices - Time Spent With Patient Total time spent is greater than 50% in coordination of care (as documented) at patient's floor/unit and/or counseling patient:
[2017-10-25] MEDS: OXYCODONE Oral CONC 10 MG/0.5 ML ORAL.SYG SL PRN ×2 (04:30→12:29)
[2017-10-25 06:08] LABS: Basophils % 0.4 %; Eosinophils # 0.3 K/mcL (0.0-0.6); Eosinophils % 3.2 %; Hematocrit 36.5 % (37.5-50.1); Hemoglobin 11.9 g/dL (12.9-16.9); Immature Granulocytes % 0.2 % (0-4); Lymphocytes # 2.5 K/mcL (0.6-4.6); Lymphocytes % 30.4 %; Mean Corpuscular HGB Conc 32.6 g/dL (31.6-35.5); Mean Corpuscular Hemoglobin 32.6 pg (28.0-33.3); Mean Platelet Volume 9.5 fL (9.4-12.4); Monocytes # 0.8 K/mcL (0.0-1.3); Neutrophils # 4.5 K/mcL (1.6-8.9); Platelet Count 188 K/mcL (140-400); Red Blood Count 3.65 M/mcL (4.19-5.50); Red Cell Distribution Width 15.4 % (11.5-14.5); Segmented Neutrophils % 55.8 %
[2017-10-25 06:25] LABS: Alanine Aminotransferase 13 Units/L (7-52); Albumin 3.6 g/dL (3.5-5.7); Albumin/Globulin Ratio 1.7 (1.1-2.2); Alkaline Phosphatase 51 Units/L (34-104); Aspartate Amino Transferase 17 Units/L (13-39); BUN/Creatinine Ratio 25 (6-26); Bilirubin,Total 0.3 mg/dL (0.3-1.0); Blood Urea Nitrogen 21 mg/dL (6-20); Calcium 8.4 mg/dL (8.6-10.3); Carbon Dioxide 30 mEq/L (23-29); Chloride 108 mEq/L (98-107); Globulin 2.1 g/dL (2.4-3.5); Glucose 135 mg/dL (70-105); Osmolality,Calculated 301 (280-300); Potassium 3.6 mEq/L (3.5-5.1); Sodium 143 mEq/L (136-145); Total Protein 5.7 g/dL (6.4-8.9); eGFR For Non-African Americans > 60 (> 60)
--- NOTE | 2017-10-25 08:43 | Pulmonology Consult Note ---
<Bryan Mata A - Last Filed: 10/25/17 10:04> Date of Encounter: 10/25/17 Time of Encounter: 08:35 Assessment and Plan (1) Pneumothorax, left Current Visit: Yes Status: Acute Left chest tube to low constant suction, air bubbles noted on exam F/u CXR this morning showed improved pneumothorax and lung inflation Clinically the pt denies any SOB or chest pain Chest tube to water seal Continue to monitor (2) COPD (chronic obstructive pulmonary disease) Current Visit: Yes Status: Chronic Continue home Symbicort Qualifiers: COPD type: unspecified COPD Qualified Code(s): J44.9 - Chronic obstructive pulmonary disease, unspecified (3) Lung mass Current Visit: No Status: Chronic Left spiculated lung mass noted on chest CT Underwent CT guided biopsy on 10/23 Await pathology results History of Present Illness Consult date: 10/25/17 Requesting physician: Madi Young Reason for consult: dyspnea, pneumothorax Chief complaint: shortness of breath History of present illness: Mr. Mancera is 56M with pmh of sleep apnea, COPD, tobacco abuse, and HTN who recently had a CT guided biopsy for a left lung nodule on 10/23/17. On follow up CXR on 10/24 a pneumothorax was identified and pt was encouraged to go to the ER. He denied any shortness of breath at this time. Admitted to a small amount of blood tinged sputum production, and stated he had some chest discomfort which he attributed to the biopsy procedure. Today the pt is resting comfortably in bed with no new or acute complaints. Admits to some mild discomfort from chest tube. Chest tube currently hooked to low constant suction. Denies any fever, chills, shortness of breath, cough, hemoptysis, abdominal pain, nausea, vomiting, numbness, tingling, or headache. Past Med Surg Social Fam HX - Past Medical History Medical history: CVA, hypertension Additional medical history: Lung Mass Psychiatric history: anxiety, depression - Past Surgical History Surgical History: non-contributory - Social History Smoking Status: Current every day smoker Packs per day: 0.5 Smokeless Tobacco Status: No Alcohol use: heavy, recent Drug use: none - Family History Mother Hx Family Neurologic Disorders: Yes (CVA) Medications and Allergies Aspirin 325 mg PO DAILY 03/03/17 [History] Citalopram Hydrobromide [Citalopram HBr] 40 mg PO DAILY 03/03/17 [History] Gabapentin [Neurontin] 600 mg PO TID 03/03/17 [History] Ibuprofen [Motrin] 800 mg PO Q8HR PRN 03/03/17 [History] Lisinopril [Zestril] 40 mg PO DAILY 03/03/17 [History] Promethazine [Phenergan] 25 mg PO BID PRN 03/03/17 [History] Simvastatin [Zocor] 20 mg PO HS 03/03/17 [History] Tizanidine HCl 4 mg PO BID 03/03/17 [History] Budesonide/Formoterol 160/4.5 [Symbicort 160/4.5] 2 puff IH BIDR 30 Days inhaler 03/04/17 [Rx] Tamsulosin HCl [Flomax] 0.4 mg PO DAILY 10/25/17 [History] 3 Allergy/AdvReac Type Severity Reaction Status Date / Time No Known Allergies Allergy Verified 10/24/17 21:24 All Systems: The remainder of the systems were reviewed and are negative - Constitutional Constitutional: no chills, no fever(s), no weakness - Cardiovascular Cardiovascular: no chest pain, no diaphoresis, no pedal edema - Respiratory Respiratory: no cough, no dyspnea, no wheezing - Gastrointestinal Gastrointestinal: no abdominal pain, no nausea, no vomiting - Musculoskeletal Musculoskeletal: no weakness, no numbness, no tingling - Neurological Neurological: no headache(s), no numbness, no tingling, no weakness Physical Examination Vital Signs: Vital Signs, Last 4 Hours Temp Pulse Resp BP Pulse Ox 10/25/17 07:11 98.5 F 88 16 111/73 93 General appearance: no acute distress Eyes: nonicteric ENT: oropharynx moist Neck: supple, no lymphadenopathy, no JVD Effort: normal Inspection: normal Auscultation: bilateral: clear Percussion: bilateral: not dull Tactile fremitus: bilateral: normal Cardiovascular: regular rate and rhythm Gastrointestinal: soft, non-tender, non-distended Integumentary: normal Extremities: no cyanosis, no edema, no clubbing, pink and warm Musculoskeletal: no deformities Gait: normal posture normal mental status, non-focal exam mood appropriate, affect normal Results - Laboratory Findings CBC and BMP: 10/25/17 05:34 10/25/17 05:34 Abnormal lab findings: Abnormal lab results RBC 3.65 M/mcL (4.19-5.50) L 10/25/17 05:34 Hgb 11.9 g/dL (12.9-16.9) L 10/25/17 05:34 Hct 36.5 % (37.5-50.1) L 10/25/17 05:34 RDW 15.4 % (11.5-14.5) H 10/25/17 05:34 Chloride 108 mEq/L (98-107) H 10/25/17 05:34 Carbon Dioxide 30 mEq/L (23-29) H 10/25/17 05:34 BUN 21 mg/dL (6-20) H 10/25/17 05:34 Glucose 135 mg/dL (70-105) H 10/25/17 05:34 Calculated Osmolality 301 (280-300) H 10/25/17 05:34 Calcium 8.4 mg/dL (8.6-10.3) L 10/25/17 05:34 Serum Total Protein 5.7 g/dL (6.4-8.9) L 10/25/17 05:34 Globulin 2.1 g/dL (2.4-3.5) L 10/25/17 05:34 - Diagnostic Findings Chest x-ray: report reviewed, image reviewed - Clinical Findings Intake & Output: Intake & Output 10/24/17 10/25/17 10/25/17 23:59 07:59 15:59 Output Total 0 / 0 Balance 0 / 0 Consult Discharge Plan - Plan Referrals: Rich Singer MD [Primary Care Provider] - <Bhupendra Manriquez - Last Filed: 10/25/17 13:42> Date of Encounter: 10/25/17 All Systems: The remainder of the systems were reviewed and are negative Physical Examination Vital Signs: Vital Signs, Last 4 Hours Temp Pulse Resp BP Pulse Ox 10/25/17 11:00 98.2 F 82 16 123/78 92 10/25/17 10:58 16 93 Results - Laboratory Findings CBC and BMP: 10/25/17 05:34 10/25/17 05:34 Abnormal lab findings: Abnormal lab results RBC 3.65 M/mcL (4.19-5.50) L 10/25/17 05:34 Hgb 11.9 g/dL (12.9-16.9) L 10/25/17 05:34 Hct 36.5 % (37.5-50.1) L 10/25/17 05:34 RDW 15.4 % (11.5-14.5) H 10/25/17 05:34 Chloride 108 mEq/L (98-107) H 10/25/17 05:34 Carbon Dioxide 30 mEq/L (23-29) H 10/25/17 05:34 BUN 21 mg/dL (6-20) H 10/25/17 05:34 Glucose 135 mg/dL (70-105) H 10/25/17 05:34 Calculated Osmolality 301 (280-300) H 10/25/17 05:34 Calcium 8.4 mg/dL (8.6-10.3) L 10/25/17 05:34 Serum Total Protein 5.7 g/dL (6.4-8.9) L 10/25/17 05:34 Globulin 2.1 g/dL (2.4-3.5) L 10/25/17 05:34 - Clinical Findings Intake & Output: Intake & Output 10/24/17 10/25/17 10/25/17 23:59 07:59 15:59 Intake Total 0 / 0 Output Total 0 / 0 0 / 0 Balance 0 / 0 0 / 0 - Attending Attestation I examined this patient and my medical decision-making was reviewed with the Resident Physician. I agree with the documented findings, disposition and treatment plan as described except to the extent set forth below. Patient seen and examined. Labs, radiology, chart personally reviewed. Agree with resident's history and physical, assessment, plan with following comments: FAMILY READINESS SUPPORT ASSISTANT: Patient follows commands, Pulmonary: Patient was seen and examined and reviewed his x-rays. Patient status post lung biopsy and pneumothorax with underlying history of advanced COPD. Continue bronchodilators and follow-up chest x-ray has no evidence of significant pneumothorax and chest tube will be underwater seal and if remain stable then chest tube can be removed. This was explained to patient and he understand that. Follow-up on the biopsy result as outpatient. Thank you for the consultation and patient understand smoking tobacco will worsen his condition even further.
--- NOTE | 2017-10-25 10:32 | Internal Med Progress Note ---
Hospitalist Progress Note - Encounter Date of Encounter: 10/25/17 Time of Encounter: 10:30 - Subjective Interval History: Patient seen and examined this morning. No acute overnight events. Breathing better. Mild chest pain. No pleural drainage or leakage. - Exam Vitals: Temp Pulse Resp BP Pulse Ox 98.5 F 88 16 111/73 93 10/25/17 07:11 10/25/17 07:11 10/25/17 07:11 10/25/17 07:11 10/25/17 07:11 Exam: General: Alert and oriented 3; lying in bed in no acute distress Skin:Normal color, no rash, pleural catheter noted at left anterior chest wall. No drainage or air leakage noted. HEENT:EOM, pupils equal, round and reactive. Cardiovascular:Normal S1 & S2, no rubs, murmurs or gallops. No JVD. Pulse regular. Lungs:Normal breath sounds, no wheezes or crackles. Abdomen:Soft, non-tender, no rigidity. Extremities:No deformity, no edema or tenderness, no joint swelling or clubbing. Neurological:Normal cognition and motor skills. Pulses:Carotid and radial pulses normal +2. Rest of the physical exam is non contributory - Assessment and Plan (1) HTN (hypertension) Current Visit: No Status: Chronic (2) DVT prophylaxis Current Visit: No Status: Acute (3) Pneumothorax, left Current Visit: Yes Status: Acute (4) COPD (chronic obstructive pulmonary disease) Current Visit: Yes Status: Chronic (5) Lung mass Current Visit: No Status: Chronic - Summary of Assessment and Plan Summary of Assessment and Plan: Pneumothorax, left - Pneumothorax in the setting recent lung biopsy 10/23. - s/p Pleural catheter in place. Maintain to suction. Pain control. - CXR 10/25 with Re-expansion of the left lung. pneumothorax resolve. - Pulmonary consult recommendation appreciated. COPD No evidence of COPD exacerbation at this time. We will continue home inhalers. Lung mass - spiculated lung mass noted on chest CT on Lt. s/p CT guided biopsy on 10/23 - f/u pathology results HTN - Blood pressure stable. Continue with home antihypertensives DVT prophylaxis - Pneumatic compression devices - Time Spent with Patient Total time spent is greater than 50% in coordination of care (as documented) at patient's floor/unit and/or counseling patient: Internal Medicine: Result - Labs CBC & Chem 7: 10/25/17 05:34 10/25/17 05:34 Labs: Short CBC 10/25/17 Range/Units 05:34 WBC 8.1 (4.3-11.1) K/mcL Hgb 11.9 L (12.9-16.9) g/dL Hct 36.5 L (37.5-50.1) % Plt Count 188 (140-400) K/mcL Neutrophils # 4.5 (1.6-8.9) K/mcL BMP 10/25/17 05:34 Sodium 143 Potassium 3.6 Chloride 108 H Carbon Dioxide 30 H BUN 21 H Creatinine 0.84 Glucose 135 H Calcium 8.4 L Liver Function 10/25/17 Range/Units 05:34 Total Bilirubin 0.3 (0.3-1.0) mg/dL AST 17 (13-39) Units/L ALT 13 (7-52) Units/L Alkaline Phosphatase 51 (34-104) Units/L Albumin 3.6 (3.5-5.7) g/dL - Impressions Impressions Chest X-Ray 10/25/17 09:00 IMPRESSION: Re-expansion of the left lung with presence of a left pleural catheter. No significant residual pneumothorax is evident. Prominent interstitial markings within the left upper lobe which may represent infectious/inflammatory process. Mild COPD. D/ / 10/25/2017 09:54:39 Lanre Luo MD / [facility] Interpreting Provider: Lanre Luo MD - [facility] Documentation of Mechanical Device: Intermittent pneumatic compression device Consult Discharge Plan - Plan Referrals: Rich Singer MD [Primary Care Provider] - (1) HTN (hypertension) Qualifiers: Hypertension type: essential hypertension Qualified Code(s): I10 - Essential (primary) hypertension (4) COPD (chronic obstructive pulmonary disease) Qualifiers: COPD type: unspecified COPD Qualified Code(s): J44.9 - Chronic obstructive pulmonary disease, unspecified
[2017-10-25] MEDS: Budesonide/Formoterol 160/4.5 1 PUFF INH IH SCH ×2 (10:58→22:12)
--- NOTE | 2017-10-25 15:46 | IR Progress Note ---
Vital Signs: Vital Signs/O2 Sat, Most Current Temp Pulse Resp BP Pulse Ox 98.2 F 82 16 123/78 92 10/25/17 11:00 10/25/17 11:00 10/25/17 11:00 10/25/17 11:00 10/25/17 11:00 Recent Labs: Lab Results 10/25/17 10/25/17 05:34 05:34 WBC 8.1 RBC 3.65 L Hgb 11.9 L Hct 36.5 L MCV 100.0 MCH 32.6 MCHC 32.6 RDW 15.4 H Plt Count 188 MPV 9.5 Neutrophils # 4.5 Lymphocytes # 2.5 Monocytes # 0.8 Eosinophils # 0.3 Basophils # 0.0 Sodium 143 Potassium 3.6 Chloride 108 H Carbon Dioxide 30 H BUN 21 H Creatinine 0.84 Est GFR ( Amer) > 60 Est GFR (Non-Af Amer) > 60 BUN/Creatinine Ratio 25 Glucose 135 H Calcium 8.4 L Assessment and Plan Saw Mr. Mancera this afternoon. Doing well. Some pain at chest tube site. Breathing well. Looking forward to hopefully getting out this weekend if air leak closes. Notified Dr. Wray of pts status. Wilfred Mclean MD
[2017-10-25] MEDS: Gabapentin 300 MG CAPSULE PO SCH ×2 (16:14→21:09)
[2017-10-26] MEDS: traMADol 50 MG TABLET PO PRN (06:07)
[2017-10-26] MEDS: Ipratropium/Albuterol Neb 3 ML IH SCH ×6 (06:19→23:55)
--- NOTE | 2017-10-26 07:15 | Pulmonology Progress Note ---
Date of Encounter: 10/26/17 Time of Encounter: 07:14 Assessment and Plan (1) Pneumothorax, left Current Visit: Yes Status: Acute Patient has had a large pneumothorax status post biopsy for a suspicious lung lesion. Overnight chest tube on water seal and there has been no reaccumulation of pneumothorax there is no air leak today Plan for clamp trial and repeat chest x-ray of stable we will remove chest tube subsequently (2) COPD exacerbation Current Visit: No Status: Acute Recommend a steroid burst prednisone 40 mg 5 days and azithromycin (Z-Aric) patient should be discharged with this regimen (3) Lung mass Current Visit: No Status: Chronic This is suspicious for primary lung malignancy Follow-up outpatient pulmonary clinic within the week to discuss results of biopsy Subjective Principal diagnosis: Pneumothorax Interval history: Mr. Mancera has done well overnight. He denies any significant pain except at the chest tube insertion site. He is not coughing up any blood but he has not started his breathing has become a bit worse and he is having more cough productive of sputum. Denies fevers or chills Objective PUL Vital signs: Last Vital Signs Temp 97.8 F 10/26/17 05:00 Pulse 73 10/26/17 05:00 Resp 20 10/26/17 05:00 BP 136/88 10/26/17 05:00 Pulse Ox 94 10/26/17 05:00 General appearance: no acute distress Eyes: nonicteric Effort: normal, other (Chest wall examined the chest tube is in satisfactory position) Auscultation: bilateral: diminished breath sounds, rhonchi (Scattered) Cardiovascular: regular rate and rhythm Gastrointestinal: soft, non-tender Integumentary: normal Extremities: no cyanosis, no edema, no clubbing Musculoskeletal: no deformities normal mental status, non-focal exam mood appropriate Results - Laboratory Findings CBC and BMP: 10/25/17 05:34 10/25/17 05:34 Abnormal lab findings: Abnormal lab results RBC 3.65 M/mcL (4.19-5.50) L 10/25/17 05:34 Hgb 11.9 g/dL (12.9-16.9) L 10/25/17 05:34 Hct 36.5 % (37.5-50.1) L 10/25/17 05:34 RDW 15.4 % (11.5-14.5) H 10/25/17 05:34 Chloride 108 mEq/L (98-107) H 10/25/17 05:34 Carbon Dioxide 30 mEq/L (23-29) H 10/25/17 05:34 BUN 21 mg/dL (6-20) H 10/25/17 05:34 Glucose 135 mg/dL (70-105) H 10/25/17 05:34 Calculated Osmolality 301 (280-300) H 10/25/17 05:34 Calcium 8.4 mg/dL (8.6-10.3) L 10/25/17 05:34 Serum Total Protein 5.7 g/dL (6.4-8.9) L 10/25/17 05:34 Globulin 2.1 g/dL (2.4-3.5) L 10/25/17 05:34 - Diagnostic Findings Chest x-ray: report reviewed, image reviewed - Clinical Findings Intake & Output: Intake & Output 10/25/17 10/25/17 10/26/17 15:59 23:59 07:59 Intake Total 0 / 0 120 / 120 Output Total 0 / 0 Balance 0 / 0 120 / 120 Weight 85.3 kg - VTE Documentation of Mechanical Device: Intermittent pneumatic compression device Consult Discharge Plan - Plan Referrals: Rich Singer MD [Primary Care Provider] -
[2017-10-26] MEDS: Budesonide/Formoterol 160/4.5 1 PUFF INH IH SCH ×2 (07:28→20:35)
[2017-10-26] MEDS: Gabapentin 300 MG CAPSULE PO SCH ×3 (09:42→21:37)
[2017-10-26] MEDS: Doxycycline 100 MG CAPSULE PO SCH ×2 (09:42→21:38)
[2017-10-26] MEDS: Lisinopril 20 MG TABLET PO SCH (09:42)
[2017-10-26] MEDS: predniSONE 20 MG TABLET PO SCH (09:42)
[2017-10-26] MEDS: OXYCODONE Oral CONC 10 MG/0.5 ML ORAL.SYG SL PRN ×2 (09:52→21:38)
--- NOTE | 2017-10-26 10:00 | Internal Med Progress Note ---
Hospitalist Progress Note - Encounter Date of Encounter: 10/26/17 Time of Encounter: 09:57 - Subjective Interval History: Patient seen and examined this morning. No acute overnight events. Mild chest pain. No pleural drainage or leakage. - Exam Vitals: Temp Pulse Resp BP Pulse Ox 98.2 F 85 16 138/77 94 10/26/17 07:57 10/26/17 07:57 10/26/17 07:57 10/26/17 07:57 10/26/17 07:57 Exam: General: Alert and oriented 3; lying in bed in no acute distress Skin:Normal color, no rash, pleural catheter noted at left anterior chest wall. No drainage or air leakage noted. HEENT:EOM, pupils equal, round and reactive. Cardiovascular:Normal S1 & S2, no rubs, murmurs or gallops. No JVD. Pulse regular. Lungs:Normal breath sounds, no wheezes or crackles. Abdomen:Soft, non-tender, no rigidity. Extremities:No deformity, no edema or tenderness, no joint swelling or clubbing. Neurological:Normal cognition and motor skills. Pulses:Carotid and radial pulses normal +2. Rest of the physical exam is non contributory - Assessment and Plan (1) HTN (hypertension) Current Visit: No Status: Chronic (2) DVT prophylaxis Current Visit: No Status: Acute (3) Pneumothorax, left Current Visit: Yes Status: Acute (4) COPD (chronic obstructive pulmonary disease) Current Visit: Yes Status: Chronic (5) Lung mass Current Visit: No Status: Chronic - Summary of Assessment and Plan Summary of Assessment and Plan: Pneumothorax, left - Pneumothorax in the setting recent lung biopsy 10/23. - s/p Pleural catheter in place. Pain control. - CXR 10/25 with Re-expansion of the left lung. pneumothorax resolve. - per Pulm, post Clamp Trial no air leak today. However Path report of recent lung biopsy essentially nondiagnostic. Plan for repeat CT-guided biopsy on Saturday ny IR. - c/w pleural catheter water seal until ten. - Pulmonary recommendation appreciated. Lung mass - spiculated lung mass noted on chest CT on Lt. s/p CT guided biopsy on 10/23 which was non-diagnostic. - Plan for CT-guided biopsy on Saturday by IR. COPD - Pulmonary recommend course of prednisone 40 x 5 days and Zpak. We will continue home inhalers. HTN - Blood pressure stable. Continue with home antihypertensives DVT prophylaxis - Pneumatic compression devices - Time Spent with Patient Total time spent is greater than 50% in coordination of care (as documented) at patient's floor/unit and/or counseling patient: Internal Medicine: Result - Labs CBC & Chem 7: 10/25/17 05:34 10/25/17 05:34 - Impressions Impressions Chest X-Ray 10/25/17 09:00 IMPRESSION: Re-expansion of the left lung with presence of a left pleural catheter. No significant residual pneumothorax is evident. Prominent interstitial markings within the left upper lobe which may represent infectious/inflammatory process. Mild COPD. D/ / 10/25/2017 09:54:39 Lanre Lou MD / [facility] Interpreting Provider: Lanre Luo MD Chest X-Ray 10/25/17 16:00 IMPRESSION: No evident pneumothorax. Left-sided chest tube remains. Left upper lobe interstitial opacity is unchanged. D/ / 10/25/2017 16:46:55 Bart Bucio MD / [facility] Interpreting Provider: Bart Bucio MD - VTE Documentation of Mechanical Device: Intermittent pneumatic compression device Consult Discharge Plan - Plan Referrals: Rich Singer MD [Primary Care Provider] - (1) HTN (hypertension) Qualifiers: Hypertension type: essential hypertension Qualified Code(s): I10 - Essential (primary) hypertension (4) COPD (chronic obstructive pulmonary disease) Qualifiers: COPD type: unspecified COPD Qualified Code(s): J44.9 - Chronic obstructive pulmonary disease, unspecified
--- NOTE | 2017-10-26 10:11 | Event Note ---
Date of Encounter: 10/26/17 Time of Encounter: 10:09 Post Clamp Trial no air leak. However Path report reviewed and is essentially nondiagnostic. D/w Patient and plan going forward will be to repeat CT-guided biopsy of left lung mass on Saturday with IR. Cont Placement of small bore thoracostomy tube (ok for H2O seal until then). Patient expressed understanding and agreement with plan.
[2017-10-26] MEDS ORDERED: Azithromycin 250 MG TABLET PO ONE (10:53)
--- NOTE | 2017-10-26 12:01 | Electrocardiograph Report ---
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
[2017-10-26] MEDS: tiZANidine 4 MG TABLET PO SCH (21:38)
[2017-10-27] MEDS: Ipratropium/Albuterol Neb 3 ML IH SCH ×5 (04:16→20:39)
[2017-10-27] MEDS: Budesonide/Formoterol 160/4.5 1 PUFF INH IH SCH ×2 (08:04→20:39)
[2017-10-27] MEDS: predniSONE 20 MG TABLET PO SCH (09:53)
[2017-10-27] MEDS: Doxycycline 100 MG CAPSULE PO SCH ×2 (09:53→22:07)
[2017-10-27] MEDS: Gabapentin 300 MG CAPSULE PO SCH ×3 (09:53→22:06)
[2017-10-27] MEDS: Lisinopril 20 MG TABLET PO SCH (09:53)
[2017-10-27] MEDS: tiZANidine 4 MG TABLET PO SCH ×2 (09:53→22:06)
[2017-10-27] MEDS: Azithromycin 250 MG TABLET PO SCH (09:53)
[2017-10-27] MEDS: OXYCODONE Oral CONC 10 MG/0.5 ML ORAL.SYG SL PRN ×2 (09:57→18:49)
--- NOTE | 2017-10-27 10:20 | Internal Med Progress Note ---
Hospitalist Progress Note - Encounter Date of Encounter: 10/27/17 Time of Encounter: 10:16 - Subjective Interval History: Patient seen and examined this morning. No new complains. Breathing well. No pleural drainage or leakage. - Exam Vitals: Temp Pulse Resp BP Pulse Ox 97.6 F 61 18 124/79 97 10/27/17 07:55 10/27/17 07:55 10/27/17 07:55 10/27/17 07:55 10/27/17 07:55 Exam: General: Alert and oriented 3; lying in bed in no acute distress Skin:Normal color, no rash, pleural catheter noted at left anterior chest wall. No drainage or air leakage noted. Cardiovascular: Normal S1 & S2, no rubs, murmurs or gallops. No JVD. Pulse regular. Lungs:Normal breath sounds, no wheezes or crackles. Abdomen:Soft, non-tender, no rigidity. Extremities:No deformity, no edema or tenderness, no joint swelling or clubbing. Neurological:Normal cognition and motor skills. - Assessment and Plan (1) HTN (hypertension) Current Visit: No Status: Chronic (2) DVT prophylaxis Current Visit: No Status: Acute (3) Pneumothorax, left Current Visit: Yes Status: Acute (4) COPD (chronic obstructive pulmonary disease) Current Visit: Yes Status: Chronic (5) Lung mass Current Visit: No Status: Chronic - Summary of Assessment and Plan Summary of Assessment and Plan: Pneumothorax, left - Pneumothorax in the setting recent lung biopsy 10/23. - s/p Pleural catheter in place. Pain control. - CXR 10/25 with Re-expansion of the left lung. pneumothorax resolved. - Path report of recent lung biopsy essentially nondiagnostic. Plan for repeat CT-guided biopsy on Saturday with IR. - c/w pleural catheter water seal until ten. - Pulmonary recommendation appreciated. Lung mass - spiculated lung mass noted on chest CT on Lt. s/p CT guided biopsy on 10/23 which was non-diagnostic. - Plan for CT-guided biopsy on Saturday by IR. COPD - Pulmonary recommend course of prednisone 40 x 5 days and Zpak. We will continue home inhalers. HTN - Blood pressure stable. Continue with home antihypertensives DVT prophylaxis - Pneumatic compression devices - Time Spent with Patient Total time spent is greater than 50% in coordination of care (as documented) at patient's floor/unit and/or counseling patient: Internal Medicine: Result - Labs CBC & Chem 7: 10/25/17 05:34 10/25/17 05:34 - Impressions Impressions Chest X-Ray 10/25/17 16:00 IMPRESSION: No evident pneumothorax. Left-sided chest tube remains. Left upper lobe interstitial opacity is unchanged. D/ / 10/25/2017 16:46:55 Bart Bucio MD / [facility] Interpreting Provider: Bart Bucio MD - VTE Documentation of Mechanical Device: Intermittent pneumatic compression device Consult Discharge Plan - Plan Referrals: Rich Singer MD [Primary Care Provider] - (1) HTN (hypertension) Qualifiers: Hypertension type: essential hypertension Qualified Code(s): I10 - Essential (primary) hypertension (4) COPD (chronic obstructive pulmonary disease) Qualifiers: COPD type: unspecified COPD Qualified Code(s): J44.9 - Chronic obstructive pulmonary disease, unspecified
[2017-10-27] MEDS: traMADol 50 MG TABLET PO PRN (22:06)
[2017-10-28] MEDS: Ipratropium/Albuterol Neb 3 ML IH SCH ×6 (00:07→20:09)
--- NOTE | 2017-10-28 07:04 | Pulmonology Progress Note ---
Date of Encounter: 10/28/17 Time of Encounter: 07:03 Assessment and Plan (1) Pneumothorax, left Current Visit: Yes Status: Acute Patient has had a large pneumothorax status post biopsy for a suspicious lung lesion. Plan to maintain a chest tube today until repeat CT-guided biopsy planned to keep on waterseal overnight unless evidence of pneumothorax likely can remove chest tube tomorrow (2) COPD exacerbation Current Visit: No Status: Acute Recommend a steroid burst prednisone 40 mg 5 days and doxycycline patient should be discharged with this regimen (3) Lung mass Current Visit: No Status: Chronic This is suspicious for primary lung malignancy Repeat CT-guided biopsy is indicated discussed the case with interventional radiologist Subjective Principal diagnosis: Pneumothorax Interval history: Roselia assess his breathing is a little bit better after steroids/ABx . He did have an episode where he coughed up some dark blood but that only happened once and nothing before sats. I said that that would be expected given postprocedure hemorrhage in that region.. Objective PUL Vital signs: Last Vital Signs Temp 97.9 F 10/28/17 06:51 Pulse 63 10/28/17 06:51 Resp 16 10/28/17 06:51 BP 133/85 10/28/17 06:51 Pulse Ox 98 10/28/17 06:51 General appearance: no acute distress Effort: normal Auscultation: bilateral: wheezes (Faint expiratory wheezes which has not been improved over the the previous examination), other (Chest tube in satisfactory position no air leak ) Cardiovascular: regular rate and rhythm Gastrointestinal: normoactive bowel sounds Integumentary: normal Extremities: no cyanosis Musculoskeletal: no deformities normal mental status, non-focal exam mood appropriate Results - Laboratory Findings CBC and BMP: 10/25/17 05:34 10/25/17 05:34 Abnormal lab findings: Abnormal lab results RBC 3.65 M/mcL (4.19-5.50) L 10/25/17 05:34 Hgb 11.9 g/dL (12.9-16.9) L 10/25/17 05:34 Hct 36.5 % (37.5-50.1) L 10/25/17 05:34 RDW 15.4 % (11.5-14.5) H 10/25/17 05:34 Chloride 108 mEq/L (98-107) H 10/25/17 05:34 Carbon Dioxide 30 mEq/L (23-29) H 10/25/17 05:34 BUN 21 mg/dL (6-20) H 10/25/17 05:34 Glucose 135 mg/dL (70-105) H 10/25/17 05:34 POC Glucose 112 mg/dL (70-99) H 10/26/17 11:21 Calculated Osmolality 301 (280-300) H 10/25/17 05:34 Calcium 8.4 mg/dL (8.6-10.3) L 10/25/17 05:34 Serum Total Protein 5.7 g/dL (6.4-8.9) L 10/25/17 05:34 Globulin 2.1 g/dL (2.4-3.5) L 10/25/17 05:34 - Clinical Findings Intake & Output: Intake & Output 10/27/17 10/27/17 10/28/17 15:59 23:59 07:59 Intake Total 240 / 240 Balance 240 / 240 - VTE Documentation of Mechanical Device: Intermittent pneumatic compression device Consult Discharge Plan - Plan Referrals: Rich Singer MD [Primary Care Provider] -
[2017-10-28] MEDS: Budesonide/Formoterol 160/4.5 1 PUFF INH IH SCH ×2 (07:27→20:09)
[2017-10-28] MEDS: tiZANidine 4 MG TABLET PO SCH ×2 (07:51→21:28)
[2017-10-28] MEDS: traMADol 50 MG TABLET PO PRN (07:51)
[2017-10-28] MEDS: Gabapentin 300 MG CAPSULE PO SCH ×3 (07:51→21:28)
[2017-10-28] MEDS: Azithromycin 250 MG TABLET PO SCH (07:51)
[2017-10-28] MEDS: Lisinopril 20 MG TABLET PO SCH (07:51)
[2017-10-28] MEDS: predniSONE 20 MG TABLET PO SCH (07:51)
[2017-10-28] MEDS: Doxycycline 100 MG CAPSULE PO SCH ×2 (07:51→21:28)
[2017-10-28] MEDS: OXYCODONE Oral CONC 10 MG/0.5 ML ORAL.SYG SL PRN ×2 (12:17→21:29)
--- NOTE | 2017-10-28 14:14 | Internal Med Progress Note ---
Hospitalist Progress Note - Encounter Date of Encounter: 10/28/17 Time of Encounter: 14:12 - Subjective Interval History: No new complains. Breathing well. No pleural drainage or leakage. - Exam Vitals: Temp Pulse Resp BP Pulse Ox 98.8 F 67 18 134/83 97 10/28/17 10:43 10/28/17 10:43 10/28/17 11:29 10/28/17 10:43 10/28/17 11:29 Exam: General: Alert and oriented 3; lying in bed in no acute distress Skin:Normal color, no rash, pleural catheter noted at left anterior chest wall. No drainage or air leakage noted. Cardiovascular: Normal S1 & S2, no rubs, murmurs or gallops. No JVD. Pulse regular. Lungs:Normal breath sounds, no wheezes or crackles. Chest tube still in place. Abdomen:Soft, non-tender, no rigidity. - Assessment and Plan (1) HTN (hypertension) Current Visit: No Status: Chronic (2) DVT prophylaxis Current Visit: No Status: Acute (3) Pneumothorax, left Current Visit: Yes Status: Acute (4) COPD (chronic obstructive pulmonary disease) Current Visit: Yes Status: Chronic (5) Lung mass Current Visit: No Status: Chronic - Summary of Assessment and Plan Summary of Assessment and Plan: Pneumothorax, left - Pneumothorax in the setting recent lung biopsy 10/23. - s/p Pleural catheter in place. Pain control. - CXR 10/25 with Re-expansion of the left lung. pneumothorax resolved. - Path report of recent lung biopsy essentially nondiagnostic. Plan for repeat CT-guided biopsy today. - Pulmonary recommendation appreciated. Lung mass - spiculated lung mass noted on chest CT on Lt. s/p CT guided biopsy on 10/23 which was non-diagnostic. - Plan for CT-guided biopsy today by IR. COPD - Pulmonary recommend course of prednisone 40 x 5 days and Zpak. We will continue home inhalers. HTN - Blood pressure stable. Continue with home antihypertensives DVT prophylaxis - Pneumatic compression devices - Time Spent with Patient Total time spent is greater than 50% in coordination of care (as documented) at patient's floor/unit and/or counseling patient: Internal Medicine: Result - Labs CBC & Chem 7: 10/25/17 05:34 10/25/17 05:34 - Impressions Impressions Chest X-Ray 10/27/17 18:43 IMPRESSION: Left chest tube is in stable position. There is no pneumothorax. Stable interstitial-alveolar opacity in the left upper lung. D/ / Stepan Bustillos MD / Stepan Bustillos MD Interpreting Provider: Stepan Bustillos MD - VTE Documentation of Mechanical Device: Intermittent pneumatic compression device Consult Discharge Plan - Plan Referrals: Rich Singer MD [Primary Care Provider] - (1) HTN (hypertension) Qualifiers: Hypertension type: essential hypertension Qualified Code(s): I10 - Essential (primary) hypertension (4) COPD (chronic obstructive pulmonary disease) Qualifiers: COPD type: unspecified COPD Qualified Code(s): J44.9 - Chronic obstructive pulmonary disease, unspecified
[2017-10-28] MEDS ORDERED: *HR* FentaNYL (PF) 100 MCG/2 ML VIAL ONE ×2 (14:50→15:13)
[2017-10-28] MEDS ORDERED: *HR* FentaNYL (PF) 100 MCG/2 ML VIAL IVP ONE ×2 (14:51→15:13)
[2017-10-28] MEDS ORDERED: 0.9 % Sodium Chloride 1,000 ML ONE (15:16)
--- NOTE | 2017-10-28 15:44 | IR Procedure Note ---
Date of procedure: 10/28/17 Consent Obtained: Verbal consent, Written consent Timeout: Correct patient and procedure verified, Correct site verified, Time out performed, Skin prep completed Local anesthetic: Lidocaine 1% Indications: left lung nodule Procedure Performed: left lung biopsy Was there an transport assistant present: No Site/Technique: MARGARITA Results/Findings: left lung nodule Estimated blood loss (cc): 0 Complications: None; Tolerated procedure well Post Procedure Treatment Plan: continue chest tube, Specimen: 20 G core x 5
[2017-10-29] MEDS: Ipratropium/Albuterol Neb 3 ML IH SCH ×6 (03:32→20:13)
[2017-10-29] MEDS: OXYCODONE Oral CONC 10 MG/0.5 ML ORAL.SYG SL PRN ×3 (04:55→22:26)
--- NOTE | 2017-10-29 07:21 | Pulmonology Progress Note ---
Date of Encounter: 10/29/17 Time of Encounter: 07:21 Assessment and Plan (1) Pneumothorax, left Current Visit: Yes Status: Acute No air leak today on waterseal I will actually place the patient on wall suction over the course of the morning a repeat chest film. If there is no change in the size of the pneumothorax could consider a clamp trial later in the day (2) COPD exacerbation Current Visit: No Status: Acute Recommend a steroid burst prednisone 40 mg 5 days and doxycycline clinically appears to be responding to this therapy (3) Lung mass Current Visit: No Status: Chronic This is suspicious for primary lung malignancy Repeat CT-guided biopsy pending pathology report Outpatient pulmonary follow-up for this Subjective Principal diagnosis: Pneumothorax Interval history: Mr. Mancera says he is doing well status post biopsy yesterday there is no untoward effects that he has a small residual pneumothorax with no air leak on the chest tube today he denies hemoptysis or chest pain Objective PUL Vital signs: Last Vital Signs Temp 97.9 F 10/29/17 06:43 Pulse 74 10/29/17 06:43 Resp 15 10/29/17 06:43 BP 129/86 10/29/17 06:43 Pulse Ox 97 10/29/17 06:43 General appearance: no acute distress ENT: oropharynx moist Effort: normal Auscultation: bilateral: wheezes (Faint expiratory wheezing with scattered rhonchi) Cardiovascular: regular rate and rhythm Gastrointestinal: normoactive bowel sounds Integumentary: normal Extremities: no cyanosis, no edema, no clubbing Musculoskeletal: no deformities normal mental status mood appropriate Results - Laboratory Findings CBC and BMP: 10/25/17 05:34 10/25/17 05:34 Abnormal lab findings: Abnormal lab results RBC 3.65 M/mcL (4.19-5.50) L 10/25/17 05:34 Hgb 11.9 g/dL (12.9-16.9) L 10/25/17 05:34 Hct 36.5 % (37.5-50.1) L 10/25/17 05:34 RDW 15.4 % (11.5-14.5) H 10/25/17 05:34 Chloride 108 mEq/L (98-107) H 10/25/17 05:34 Carbon Dioxide 30 mEq/L (23-29) H 10/25/17 05:34 BUN 21 mg/dL (6-20) H 10/25/17 05:34 Glucose 135 mg/dL (70-105) H 10/25/17 05:34 POC Glucose 112 mg/dL (70-99) H 10/26/17 11:21 Calculated Osmolality 301 (280-300) H 10/25/17 05:34 Calcium 8.4 mg/dL (8.6-10.3) L 10/25/17 05:34 Serum Total Protein 5.7 g/dL (6.4-8.9) L 10/25/17 05:34 Globulin 2.1 g/dL (2.4-3.5) L 10/25/17 05:34 - Diagnostic Findings Chest x-ray: report reviewed, image reviewed CT scan - chest: report reviewed, image reviewed - Clinical Findings Intake & Output: Intake & Output 10/28/17 10/28/17 10/29/17 15:59 23:59 07:59 Weight 86 kg - VTE Documentation of Mechanical Device: Intermittent pneumatic compression device Consult Discharge Plan - Plan Referrals: Rich Singer MD [Primary Care Provider] -
[2017-10-29] MEDS: traMADol 50 MG TABLET PO PRN ×2 (07:44→21:07)
[2017-10-29] MEDS: Budesonide/Formoterol 160/4.5 1 PUFF INH IH SCH ×2 (07:47→20:12)
[2017-10-29] MEDS: Doxycycline 100 MG CAPSULE PO SCH ×2 (09:20→21:07)
[2017-10-29] MEDS: Gabapentin 300 MG CAPSULE PO SCH ×3 (09:20→21:06)
[2017-10-29] MEDS: predniSONE 20 MG TABLET PO SCH (09:20)
[2017-10-29] MEDS: Lisinopril 20 MG TABLET PO SCH (09:20)
[2017-10-29] MEDS: tiZANidine 4 MG TABLET PO SCH ×2 (09:20→21:07)
--- NOTE | 2017-10-29 09:49 | Internal Med Progress Note ---
Hospitalist Progress Note - Encounter Date of Encounter: 10/29/17 Time of Encounter: 09:47 - Subjective Interval History: Patient seen and examined at bedside. Patient no acute overnight events. Chest x-ray this morning revealed small residual left apical pneumothorax and chest tube to wall suction per pulmonology. Patient denies any chest pain, shortness breath, nausea, vomiting, diarrhea. Patient's been afebrile. Patient complains of pain at site of chest tube. - Exam Vitals: Temp Pulse Resp BP Pulse Ox 97.9 F 74 16 129/86 99 10/29/17 06:43 10/29/17 06:43 10/29/17 07:47 10/29/17 06:43 10/29/17 07:47 Exam: Constitutional: No acute distress, Alert Psych: AAO x 3 HEENT: NCAT, EOMI Neck: supple, no JVD Cardio: regular rate and rhythm, +s1s2, no murmurs/rubs/gallops, no JVD Resp: Coarse breath sounds, good air movement, left-sided posterior chest tube in place Abd: soft, non tender/non distended, positive bowel sounds Extremities: no clubbing/cyanosis/edema appreciated Neuro: no focal deficits appreciated - Assessment and Plan (1) Pneumothorax, left Current Visit: Yes Status: Acute Assessment and Plan: Pneumothorax in the setting recent lung biopsy -cxr today with small residual left apical pneumothorax with stable catheter position -pulm following -CT to wall suction currently -repeat chest xray -consider clamp trial soon per pulm (2) COPD (chronic obstructive pulmonary disease) Current Visit: Yes Status: Chronic Assessment and Plan: -developed acute exacerbation of copd -Continue steriod burst through tomorrow as recommeded by pulm (3) Lung mass Current Visit: Yes Status: Chronic Assessment and Plan: s/p CT guided biopsy -await pathology (4) HTN (hypertension) Current Visit: Yes Status: Chronic Assessment and Plan: Blood pressure stable -continue home meds (5) DVT prophylaxis Current Visit: Yes Status: Acute Assessment and Plan: Pneumatic compression devices, start subcutaneous heparin DVT Prophylaxis: Subcutaneous heparin - Time Spent with Patient Total time spent is greater than 50% in coordination of care (as documented) at patient's floor/unit and/or counseling patient: 25 - 35 minutes Plan of Care Discussed with: patient Internal Medicine: Result - Labs CBC & Chem 7: 10/25/17 05:34 10/25/17 05:34 - Impressions Impressions Chest X-Ray 10/29/17 06:00 IMPRESSION: Small residual left apical pneumothorax with stable left pleural catheter positioning. Decreased left lung airspace disease. D/ / Musa Aponte / Musa Aponte Interpreting Provider: Musa Aponte - VTE Documentation of Mechanical Device: Intermittent pneumatic compression device Consult Discharge Plan - Plan Referrals: Rich Singer MD [Primary Care Provider] - (2) COPD (chronic obstructive pulmonary disease) Qualifiers: COPD type: unspecified COPD Qualified Code(s): J44.9 - Chronic obstructive pulmonary disease, unspecified (4) HTN (hypertension) Qualifiers: Hypertension type: essential hypertension Qualified Code(s): I10 - Essential (primary) hypertension
[2017-10-29] MEDS ORDERED: *HR* Heparin 5,000 UNIT/ML VIAL SQ SCH (18:00)
--- NOTE | 2017-10-29 18:16 | Discharge Summary ---
- NOTES TO OUTPATIENT PROVIDER Notes to Outpatient Provider: F/U with PCP and Pulmonology as outpt. Pathology pending. Orders not resulted at time of discharge: Pathology of lung biopsy pending Date of Encounter: 10/29/17 Time of Encounter: 18:12 - Discharge Diagnosis (1) Pneumothorax, left Priority: Primary Status: Acute (2) COPD (chronic obstructive pulmonary disease) Priority: Secondary Status: Chronic Qualifiers: COPD type: unspecified COPD Qualified Code(s): J44.9 - Chronic obstructive pulmonary disease, unspecified (3) Lung mass Priority: Secondary Status: Chronic (4) HTN (hypertension) Priority: Secondary Status: Chronic Qualifiers: Hypertension type: essential hypertension Qualified Code(s): I10 - Essential (primary) hypertension (5) DVT prophylaxis Priority: Secondary Status: Acute Hospital course: Mr. Mancera is a 56 year old male presented with pneumothorax after lung biopsy. Pulmonology followed the patient and manage chest tube. The patient's chest tube was clamped and chest tube was removed prior to discharge. Patient pathology of lung mass pending at time of discharge suspect malignancy will need outpatient follow-up primary care likely hematology oncology and pulmonology. Patient's chest tube has been removed and repeat imaging will be obtained 2 hours after removal if no pneumothorax and pulse ox stable with ambulation he will be discharged this evening; this was related to RN. Patient will be discharged with 1 additional day of prednisone and doxycycline for COPD exacerbation. Patient agreeable stable for discharge pending the above criteria being met 2 hours after chest tube removal. Follow-up with primary care physician, pulmonology, heme/onc if mass malignant. Discharge discussed with: patient, family, nurse Time spent discussing smoking cessation with patient: more than 10 minutes - Time Spent with Patient Total time spent providing and/or coordinating discharge services: Greater than 30 minutes - Discharge Medications Prescriptions: Doxycycline 100 mg PO BID 1 Days #1 capsule predniSONE [PredniSONE] 40 mg PO DAILY 1 Days #1 tablet Home Medications: Citalopram Hydrobromide [Citalopram HBr] 40 mg PO DAILY 03/03/17 [History] Gabapentin [Neurontin] 600 mg PO TID 03/03/17 [History] Lisinopril [Zestril] 40 mg PO DAILY 03/03/17 [History] Promethazine [Phenergan] 25 mg PO BID PRN 03/03/17 [History] Simvastatin [Zocor] 20 mg PO HS 03/03/17 [History] Tizanidine HCl 4 mg PO BID 03/03/17 [History] Budesonide/Formoterol 160/4.5 [Symbicort 160/4.5] 2 puff IH BIDR 30 Days inhaler 03/04/17 [Rx] Tamsulosin HCl [Flomax] 0.4 mg PO DAILY 10/25/17 [History] Doxycycline 100 mg PO BID 1 Days #1 capsule 10/29/17 [Rx] predniSONE [PredniSONE] 40 mg PO DAILY 1 Days #1 tablet 10/29/17 [Rx] Allergies/Adverse Reactions: 3 Allergy/AdvReac Type Severity Reaction Status Date / Time No Known Allergies Allergy Verified 10/24/17 21:24 Date of admission: 10/28/17 15:29 Primary care physician: Rich Singer MD - Constitutional Vitals: Temp Pulse Resp BP Pulse Ox 98.2 F 74 18 131/82 96 10/29/17 15:26 10/29/17 15:26 10/29/17 16:15 10/29/17 15:26 10/29/17 16:15 Exam: Constitutional: No acute distress, Alert Psych: AAO x 3 HEENT: NCAT, EOMI Neck: supple, no JVD Cardio: regular rate and rhythm, +s1s2, no murmurs/rubs/gallops, no JVD Resp: Coarse breath sounds, good air movement, left-sided posterior chest tube in place Abd: soft, non tender/non distended, positive bowel sounds Extremities: no clubbing/cyanosis/edema appreciated Neuro: no focal deficits appreciated - Patient Status Disposition: Home, Self-Care Condition: Good Functional capacity at discharge: independent ambulation Overall status at discharge: patient is progressing back to baseline - Discharge Instructions Follow Up With: Rich Singer MD [Primary Care Provider] - - Diet and Activity Activity: as per physical therapy Diet: advance to your usual diet - VTE Documentation of Mechanical Device: Intermittent pneumatic compression device
--- NOTE | 2017-10-29 18:27 | Event Note ---
Date of Encounter: 10/29/17 Time of Encounter: 18:25 Chest tube evaluated on clamp trial for 2 hours radiographically possibly small persistent apical pneumothorax no air leak and chamber patient stable complaining of any difficulty breathing given clamp trial without evidence of pneumothorax expansion nor persistent air leak recommend removal at this time. Chest tube removed at bedside. Prior to procedure there is no air leak present. Chlorhexidine was applied over the suture area prior to removal of the sutures. chest tube was removed while patient was performing Valsalva maneuver and a dressing which consisted of petroleum gauze covered by regular drain sponge and Tegaderm was placed over the area patient tolerated the procedure well with some mild pain at the chest tube removal site there is no significant drainage or subcutaneous crepitus post procedure. Repeat chest x-ray in 2 hours monitor with a pulse oximetry until then if no change radiographically or clinically from pulmonary perspective patient could be discharged safely with follow-up with pulmonary in 1 week Call with questions
[2017-10-29 19:38] VITALS: BP 143/82
== END 2017-10-29 22:50 | disposition home or self-care (01) | DRG 200 ==
LOC: EMEROOARM 21:15 → 2ANU 21:15 → SUATTDRO 10-25 00:33 → 2ANU 10-25 03:00
PROVIDERS: ADMIT Pediatrics; ATTEND Internal Medicine

== ENCOUNTER 2020-03-02 11:56 | Observation (INO) ==
[2020-03-02] MEDS ORDERED: 0.9 % Sodium Chloride 1,000 ML IVC ONE (12:08)
[2020-03-02 12:34] LABS: Hematocrit 40.2 % (37.5-50.1); Mean Corpuscular HGB Conc 32.8 g/dL (31.6-35.5); Mean Corpuscular Hemoglobin 32.6 pg (28.0-33.3); Mean Corpuscular Volume 99.3 fL (83.0-100.0); Mean Platelet Volume 8.9 fL (9.4-12.4); Platelet Count 623 K/mcL (140-400); Red Blood Count 4.05 M/mcL (4.19-5.50); Red Cell Distribution Width 15.6 % (11.5-14.5); White Blood Count 10.3 K/mcL (4.3-11.1)
[2020-03-02 12:37] LABS: Hemoglobin 13.2 g/dL (12.9-16.9)
[2020-03-02 12:50] LABS: BUN/Creatinine Ratio 11 (6-26); Blood Urea Nitrogen 13 mg/dL (8-23); Calcium 9.3 mg/dL (8.6-10.3); Carbon Dioxide 23 mEq/L (23-29); Chloride 101 mEq/L (98-107); Glucose 117 mg/dL (70-105); Osmolality,Calculated 275 (280-300); Potassium 5.8 mEq/L (3.5-5.1); Sodium 132 mEq/L (136-145); eGFR For African Americans > 60 (> 60); eGFR For Non-African Americans > 60 (> 60)
[2020-03-02 13:04] LABS: Troponin I < 0.03 ng/mL (< 0.04)
[2020-03-02] MEDS ORDERED: Furosemide 40 MG/4 ML VIAL IVP ONE (16:15)
[2020-03-02] MEDS ORDERED: Nitroglycerin 0.4 MG TAB.SUBL SL STA (16:15)
[2020-03-02] MEDS ORDERED: Naloxone 0.4 MG/ML INJ IVP PRN (16:21)
[2020-03-02] MEDS ORDERED: 0.9 % Sodium Chloride 250 ML IVC ONE ×2 (16:38→16:53)
[2020-03-02] MEDS ORDERED: 0.9 % Sodium Chloride 250 ML ONE (16:47)
[2020-03-02] MEDS ORDERED: Albuterol 2.5 MG/3 ML NEBULIZER IH PRN (18:08)
[2020-03-02] MEDS ORDERED: Perflutren Lipid Microsphere 1.3 ML in 0.9 % Sodium Chloride 8.7 ML IVP PRN (18:38)
[2020-03-02] MEDS: Ipratropium/Albuterol Neb 3 ML IH SCH ×2 (18:46→23:16)
[2020-03-02 20:06] LABS: BUN/Creatinine Ratio 11 (6-26); Blood Urea Nitrogen 13 mg/dL (8-23); Calcium 8.8 mg/dL (8.6-10.3); Carbon Dioxide 23 mEq/L (23-29); Chloride 102 mEq/L (98-107); Glucose 99 mg/dL (70-105); Osmolality,Calculated 276 (280-300); Potassium 5.7 mEq/L (3.5-5.1); Sodium 133 mEq/L (136-145); eGFR For African Americans > 60 (> 60); eGFR For Non-African Americans 60 (> 60)
[2020-03-02] MEDS: Azithromycin 500 MG in 0.9 % Sodium Chloride 250 ML IVPB SCH (20:37)
[2020-03-03] MEDS: Ipratropium/Albuterol Neb 3 ML IH SCH ×4 (03:40→20:50)
[2020-03-03 05:16] LABS: Hemoglobin 11.9 g/dL (12.9-16.9); Mean Corpuscular HGB Conc 33.1 g/dL (31.6-35.5); Mean Corpuscular Hemoglobin 32.6 pg (28.0-33.3); Mean Corpuscular Volume 98.6 fL (83.0-100.0); Mean Platelet Volume 8.8 fL (9.4-12.4); Platelet Count 504 K/mcL (140-400); Red Blood Count 3.65 M/mcL (4.19-5.50); Red Cell Distribution Width 15.3 % (11.5-14.5); White Blood Count 10.2 K/mcL (4.3-11.1)
[2020-03-03 05:51] LABS: BUN/Creatinine Ratio 12 (6-26); Blood Urea Nitrogen 14 mg/dL (8-23); Calcium 8.6 mg/dL (8.6-10.3); Carbon Dioxide 21 mEq/L (23-29); Chloride 104 mEq/L (98-107); Glucose 109 mg/dL (70-105); Magnesium 1.8 mg/dL (1.6-2.6); Osmolality,Calculated 275 (280-300); Phosphorous 3.6 mg/dL (2.7-4.5); Potassium 5.7 mEq/L (3.5-5.1); Sodium 132 mEq/L (136-145); eGFR For African Americans > 60 (> 60); eGFR For Non-African Americans > 60 (> 60)
[2020-03-03] MEDS ORDERED: Acetaminophen 325 MG TABLET PO PRN (09:06)
[2020-03-03] MEDS: Metoprolol XL (24 HR) Succ 25 MG TAB.ER.24H PO SCH (09:31)
[2020-03-03] MEDS: Gabapentin 300 MG CAPSULE PO SCH ×3 (09:31→20:13)
[2020-03-03] MEDS: *HR* HYDROcodone/Acet 5/325 mg TABLET PO PRN ×2 (09:31→20:13)
[2020-03-03] MEDS ORDERED: MethylPREDNISolone 40 MG/ML VIAL IVP SCH (18:08)
[2020-03-03] MEDS: Azithromycin 500 MG in 0.9 % Sodium Chloride 250 ML IVPB SCH (18:52)
[2020-03-04] MEDS: MethylPREDNISolone 40 MG/ML VIAL IVP SCH ×2 (00:26→08:42)
[2020-03-04] MEDS: Ipratropium/Albuterol Neb 3 ML IH SCH ×2 (04:24→10:04)
[2020-03-04 05:56] LABS: Hematocrit 35.2 % (37.5-50.1); Hemoglobin 11.3 g/dL (12.9-16.9); Mean Corpuscular HGB Conc 32.1 g/dL (31.6-35.5); Mean Corpuscular Hemoglobin 32.4 pg (28.0-33.3); Mean Corpuscular Volume 100.9 fL (83.0-100.0); Mean Platelet Volume 8.6 fL (9.4-12.4); Platelet Count 499 K/mcL (140-400); Red Blood Count 3.49 M/mcL (4.19-5.50); Red Cell Distribution Width 15.4 % (11.5-14.5); White Blood Count 9.9 K/mcL (4.3-11.1)
[2020-03-04 06:21] LABS: BUN/Creatinine Ratio 22 (6-26); Blood Urea Nitrogen 25 mg/dL (8-23); Calcium 8.5 mg/dL (8.6-10.3); Carbon Dioxide 23 mEq/L (23-29); Chloride 103 mEq/L (98-107); Glucose 259 mg/dL (70-105); Osmolality,Calculated 291 (280-300); Sodium 134 mEq/L (136-145); eGFR For African Americans > 60 (> 60); eGFR For Non-African Americans > 60 (> 60)
[2020-03-04] MEDS: Metoprolol XL (24 HR) Succ 25 MG TAB.ER.24H PO SCH (08:41)
[2020-03-04] MEDS: *HR* HYDROcodone/Acet 5/325 mg TABLET PO PRN (08:41)
[2020-03-04] MEDS: Gabapentin 300 MG CAPSULE PO SCH (08:41)
[2020-03-04 10:25] VITALS: BP 112/69
[2020-03-04] MEDS ORDERED: predniSONE 20 MG TABLET PO SCH (11:30)
[2020-03-04] MEDS ORDERED: *HR* OxyCODONE/APAP 5/325 TABLET PO PRN (11:30)
[2020-03-04] MEDS ORDERED: levoFLOXacin 750 MG TABLET PO SCH (18:00)
== END 2020-03-04 14:56 | disposition home or self-care (01) ==
LOC: EMEROOARM 11:56 → 3ANU 11:56 → SUATTDRO 16:47 → 3ANU 17:10
PROVIDERS: ADMIT Internal Medicine; ATTEND Internal Medicine

== ENCOUNTER 2021-04-16 10:55 | Observation (INO) ==
[2021-04-16] MEDS ORDERED: Isovue-370 500 ML BOTTLE IVP ONE (11:04)
[2021-04-16 11:18] LABS: Hematocrit 42.7 % (37.5-50.1); Hemoglobin 14.2 g/dL (12.9-16.9); Mean Corpuscular HGB Conc 33.3 g/dL (31.6-35.5); Mean Corpuscular Hemoglobin 31.8 pg (28.0-33.3); Mean Corpuscular Volume 95.7 fL (83.0-100.0); Platelet Count 298 K/mcL (140-400); Red Blood Count 4.46 M/mcL (4.19-5.50); White Blood Count 9.6 K/mcL (4.3-11.1)
[2021-04-16 11:25] LABS: INR 1.1; Prothrombin Time 12.2 Seconds (9.4-12.1)
[2021-04-16 11:28] LABS: Activated Partial Thrombo Time 30.9 Seconds (26.0-36.0)
[2021-04-16] MEDS ORDERED: Perflutren Lipid Microsphere 1.3 ML in 0.9 % Sodium Chloride 8.7 ML IVP PRN (12:48)
[2021-04-16] MEDS ORDERED: Aspirin 81 MG TAB.CHEW PO STA (13:05)
[2021-04-16 13:11] LABS: BUN/Creatinine Ratio 26 (6-26); Blood Urea Nitrogen 23 mg/dL (8-23); Calcium 8.9 mg/dL (8.6-10.3); Carbon Dioxide 24 mEq/L (23-29); Chloride 105 mEq/L (98-107); Glucose 98 mg/dL (70-105); Osmolality,Calculated 286 (280-300); Potassium 4.1 mEq/L (3.5-5.1); Sodium 136 mEq/L (136-145); eGFR For African Americans > 60 (> 60); eGFR For Non-African Americans > 60 (> 60)
[2021-04-16] MEDS ORDERED: Acetaminophen 325 MG TABLET PO PRN (13:36)
[2021-04-16] MEDS ORDERED: Naloxone 0.4 MG/ML INJ IVP PRN (13:36)
[2021-04-16 15:35] LABS: Influenza A PCR Negative (Negative); Influenza B PCR Negative (Negative); Resp. Syncytial Virus PCR Negative (Negative)
[2021-04-16 15:38] LABS: SARS-CoV-2 by PCR (In House) Negative (Negative)
[2021-04-16] MEDS: Ipratropium/Albuterol Neb 3 ML IH PRN ×3 (16:00→23:33)
[2021-04-16 16:51] LABS: Bacteria,Urine Few per hpf (None-Few); Bilirubin,Urine Negative (Negative); Blood,Urine Moderate (Negative); Clarity,Urine Clear (Clear); Color,Urine Light-Yellow (Yellow); Glucose,Urine (UA) Normal (Normal); Ketones,Urine Negative (Negative); Leukocyte Esterase,Urine Small (Negative); Mucus,Urine Few per lpf (None-Few); Nitrite,Urine Negative (Negative); PH,Urine 5.5 pH Units (5.0-8.0); Protein,Urine Trace mg/dL (Neg-Trace); RBC,Urine 30-50 per hpf (0-3); Specific Gravity,Urine > 1.030 (1.010-1.025); Urobilinogen,Urine Normal (Normal); WBC,Urine 15-30 per hpf (0-3)
[2021-04-16] MEDS: *HR* OxyCODONE Immed Rel 5 MG TABLET PO PRN (20:52)
[2021-04-17 01:35] LABS: INR 1.1; Prothrombin Time 12.6 Seconds (9.4-12.1)
[2021-04-17 01:59] LABS: Alanine Aminotransferase 16 Units/L (7-52); Albumin 3.7 g/dL (3.5-5.7); Albumin/Globulin Ratio 1.3 (1.1-2.2); Alkaline Phosphatase 69 Units/L (34-104); Aspartate Amino Transferase 19 Units/L (13-39); BUN/Creatinine Ratio 20 (6-26); Bilirubin,Total 0.3 mg/dL (0.3-1.0); Blood Urea Nitrogen 19 mg/dL (8-23); Calcium 8.9 mg/dL (8.6-10.3); Carbon Dioxide 25 mEq/L (23-29); Chloride 102 mEq/L (98-107); Chol/HDL Ratio 4.2 (0-4.9); Cholesterol 165 mg/dL (< 200); Globulin 2.9 g/dL (2.4-3.5); Glucose 109 mg/dL (70-105); HDL Cholesterol 39 mg/dL (40-59); LDL Cholesterol,Calculated 103 mg/dL (< 100); Osmolality,Calculated 285 (280-300); Potassium 3.9 mEq/L (3.5-5.1); Sodium 136 mEq/L (136-145); Total Protein 6.6 g/dL (6.4-8.9); Triglycerides 113 mg/dL (< 150); eGFR For African Americans > 60 (> 60); eGFR For Non-African Americans > 60 (> 60)
[2021-04-17 03:07] LABS: Estimated Average Glucose 134 mg/dl; Hemoglobin A1C 6.3 %
[2021-04-17] MEDS: *HR* OxyCODONE Immed Rel 5 MG TABLET PO PRN ×2 (04:32→10:50)
[2021-04-17] MEDS: Ipratropium/Albuterol Neb 3 ML IH PRN (04:38)
[2021-04-17] MEDS: Ipratropium/Albuterol Neb 3 ML IH SCH ×5 (07:24→23:42)
[2021-04-17] MEDS ORDERED: Aspirin Enteric Coated 325 MG Tablet PO SCH (09:00)
[2021-04-17] MEDS: Aspirin 81 MG TAB.CHEW PO SCH (09:12)
[2021-04-17] MEDS: *HR* Heparin 5,000 UNIT/ML VIAL SQ SCH (17:12)
[2021-04-18] MEDS: Ipratropium/Albuterol Neb 3 ML IH SCH ×3 (04:12→07:48)
[2021-04-18] MEDS: *HR* Heparin 5,000 UNIT/ML VIAL SQ SCH (05:52)
[2021-04-18 07:22] VITALS: BP 128/73; PULSE 87; TEMP 97.4
[2021-04-18 07:49] VITALS: O2SAT 97
[2021-04-18] MEDS ORDERED: Amoxicillin 500 MG CAPSULE PO SCH (09:00)
[2021-04-18] MEDS: Aspirin 81 MG TAB.CHEW PO SCH (09:27)
== END 2021-04-18 10:18 | disposition home or self-care (01) ==
LOC: EMEROOARM 10:55 → 3BNU 10:55 → SUATTDRO 13:17 → 3BNU 13:55
PROVIDERS: ADMIT Family Medicine; ATTEND Internal Medicine

== ENCOUNTER 2021-11-05 07:29 | Inpatient (IN) ==
[2021-11-05 08:14] LABS: Hematocrit 43.7 % (37.5-50.1); Hemoglobin 14.4 g/dL (12.9-16.9); Mean Corpuscular Hemoglobin 28.4 pg (28.0-33.3); Mean Corpuscular Volume 86.2 fL (83.0-100.0); Mean Platelet Volume 10.1 fL (9.4-12.4); Platelet Count 263 K/mcL (140-400); Red Blood Count 5.07 M/mcL (4.19-5.50); Red Cell Distribution Width 16.2 % (11.5-14.5); White Blood Count 20.3 K/mcL (4.3-11.1)
[2021-11-05] MEDS ORDERED: cefTRIAXone 2,000 MG in 0.9 % Sodium Chloride Mini Bag 100 ML IVPB STA (08:30)
[2021-11-05] MEDS ORDERED: Ipratropium/Albuterol Neb 3 ML IH ONE (08:33)
[2021-11-05] MEDS ORDERED: *HR* FentaNYL (PF) 100 MCG/2 ML VIAL IVP STA (08:34)
[2021-11-05 08:48] LABS: Albumin 3.5 g/dL (3.5-5.7); Albumin/Globulin Ratio 0.7 (1.1-2.2); Bilirubin,Direct 0.2 mg/dL (0.0-0.2); Bilirubin,Indirect 0.4 mg/dL (0.0-1.0); Bilirubin,Total 0.6 mg/dL (0.3-1.0); Calcium 9.1 mg/dL (8.6-10.3); Globulin 4.9 g/dL (2.4-3.5); Potassium 6.2 mEq/L (3.5-5.1); Total Protein 8.4 g/dL (6.4-8.9)
[2021-11-05] MEDS: 0.9 % Sodium Chloride 1,000 ML IVC SCH ×2 (09:00→10:27)
[2021-11-05] MEDS ORDERED: 0.9 % Sodium Chloride 1,000 ML IVC ONE (09:15)
[2021-11-05] MEDS ORDERED: *HR* Dextrose 50 % in Water (Syg) 50 ML SYRINGE IVP ONE (09:19)
[2021-11-05] MEDS ORDERED: SODIUM ZIRCONIUM CYCLOSILICATE 5 GM POWD.PACK PO STA (09:19)
[2021-11-05] MEDS ORDERED: Sodium Bicarbonate 50 MEQ/50 ML VIAL IVP ONE (09:19)
[2021-11-05] MEDS ORDERED: Insulin Human Regular 10 UNIT in 0.9 % Sodium Chloride 10 ML IV ONE (09:19)
[2021-11-05] MEDS ORDERED: Calcium Gluconate 1,000 MG/10 ML VIAL IVP STA (09:19)
[2021-11-05 10:36] LABS: Bilirubin,Urine Negative (Negative); Blood,Urine Moderate (Negative); Clarity,Urine Clear (Clear); Color,Urine Yellow (Yellow); Glucose,Urine (UA) Normal (Normal); Ketones,Urine Negative (Negative); Leukocyte Esterase,Urine Trace (Negative); Nitrite,Urine Negative (Negative); PH,Urine 5.5 pH Units (5.0-8.0); Protein,Urine Trace mg/dL (Neg-Trace); Specific Gravity,Urine 1.018 (1.010-1.025); Squamous Epithelial Cell,Urine Few per hpf (None-Few); Urobilinogen,Urine Normal (Normal); WBC,Urine 0-3 per hpf (0-3)
[2021-11-05] MEDS ORDERED: Naloxone 0.4 MG/ML INJ IVP PRN (12:30)
[2021-11-05] MEDS: Norepinephrine 4 MG/254 ML IV.SOLN IVC SCH (12:37)
[2021-11-05] MEDS ORDERED: Albuterol 2.5 MG/3 ML NEBULIZER IH PRN (12:40)
[2021-11-05] MEDS ORDERED: Ondansetron 4 MG/2 ML VIAL IVP PRN (12:41)
[2021-11-05] MEDS ORDERED: Vancomycin 1,500 MG/265 ML IV.SOLN IVPB ONE (13:00)
[2021-11-05] MEDS ORDERED: Vancomycin (wt based) 1,000 MG VIAL IVPB SCH (13:00)
[2021-11-05] MEDS: *HR* Heparin 5,000 UNIT/ML VIAL SQ SCH (15:09)
[2021-11-05] MEDS: Piperacillin/Tazobactam 3.375 GM in 0.9 % Sodium Chloride Mini Bag 100 ML IVPB SCH (15:09)
[2021-11-05] MEDS: Ipratropium/Albuterol Neb 3 ML IH SCH ×3 (15:16→23:33)
[2021-11-05] MEDS: *HR* OxyCODONE/APAP 5/325 TABLET PO PRN ×2 (15:28→22:03)
[2021-11-05] MEDS: Albumin Human 5% 12.5 GM/250 ML IV.SOLN IVC SCH ×4 (15:28→20:38)
[2021-11-05 16:06] LABS: INR 1.3; Prothrombin Time 14.8 Seconds (9.4-12.1)
[2021-11-05 16:09] LABS: Activated Partial Thrombo Time 27.6 Seconds (26.0-36.0)
[2021-11-05 16:17] LABS: Calcium 7.9 mg/dL (8.6-10.3); Potassium 4.5 mEq/L (3.5-5.1)
[2021-11-06] MEDS ORDERED: 0.9 % Sodium Chloride 1,000 ML ONE (00:13)
[2021-11-06] MEDS: Piperacillin/Tazobactam 3.375 GM in 0.9 % Sodium Chloride Mini Bag 100 ML IVPB SCH ×3 (00:14→16:02)
[2021-11-06] MEDS: *HR* Heparin 5,000 UNIT/ML VIAL SQ SCH ×3 (00:14→16:01)
[2021-11-06] MEDS ORDERED: 0.9 % Sodium Chloride 1,000 ML IVC SCH (00:15)
[2021-11-06] MEDS: *HR* OxyCODONE Immed Rel 5 MG TABLET PO PRN ×3 (03:10→17:58)
[2021-11-06] MEDS: Ipratropium/Albuterol Neb 3 ML IH SCH ×5 (04:12→20:34)
[2021-11-06] MEDS: Norepinephrine 4 MG/254 ML IV.SOLN IVC SCH ×2 (04:32→08:55)
[2021-11-06] MEDS: 0.9 % Sodium Chloride 1,000 ML IVC SCH ×3 (04:50→04:52)
[2021-11-06 05:48] LABS: Basophils % 0.1 %; Hematocrit 30.3 % (37.5-50.1); Hemoglobin 9.8 g/dL (12.9-16.9); Immature Granulocytes % 0.3 % (0-4); Lymphocytes # 0.8 K/mcL (0.6-4.6); Lymphocytes % 4.8 %; Mean Corpuscular HGB Conc 32.3 g/dL (31.6-35.5); Mean Corpuscular Hemoglobin 27.8 pg (28.0-33.3); Mean Corpuscular Volume 85.8 fL (83.0-100.0); Mean Platelet Volume 9.6 fL (9.4-12.4); Monocytes # 1.3 K/mcL (0.0-1.3); Monocytes % 8.5 %; Neutrophils # 13.6 K/mcL (1.6-8.9); Platelet Count 202 K/mcL (140-400); Red Blood Count 3.53 M/mcL (4.19-5.50); Red Cell Distribution Width 15.9 % (11.5-14.5); Segmented Neutrophils % 86.3 %; White Blood Count 15.7 K/mcL (4.3-11.1)
[2021-11-06 06:06] LABS: Bilirubin,Direct 0.4 mg/dL (0.0-0.2); Bilirubin,Indirect 0.4 mg/dL (0.0-1.0); Bilirubin,Total 0.8 mg/dL (0.3-1.0); Calcium 8.3 mg/dL (8.6-10.3); Globulin 2.9 g/dL (2.4-3.5); Phosphorous 2.7 mg/dL (2.7-4.5); Total Protein 5.9 g/dL (6.4-8.9)
[2021-11-06] MEDS ORDERED: *HR* HYDROmorphone (PF) 1 MG/ML SYRINGE IVP ONE (06:12)
[2021-11-06] MEDS ORDERED: *HR* OxyCODONE/APAP 10/325 TABLET PO ONE (07:40)
[2021-11-06] MEDS ORDERED: *HR* OxyCODONE Immed Rel 5 MG TABLET PO ONE (09:36)
[2021-11-06] MEDS: Morphine Sulfate ER (12 HR) 60 MG TABLET.ER PO SCH ×2 (10:49→19:35)
[2021-11-06] MEDS: Metoprolol XL (24 HR) Succ 25 MG TAB.ER.24H PO SCH (11:40)
[2021-11-06] MEDS: Gabapentin 300 MG CAPSULE PO SCH ×3 (11:40→19:36)
[2021-11-06] MEDS: *HR* OxyCODONE/APAP 10/325 TABLET PO PRN ×2 (13:42→21:36)
[2021-11-06] MEDS ORDERED: *HR* LORazepam 0.5 MG TABLET PO PRN (14:49)
[2021-11-06] MEDS ORDERED: Vancomycin 1,250 MG/262.5 ML IV.SOLN IVPB SCH (17:00)
[2021-11-06] MEDS ORDERED: Morphine Sulfate ER (12 HR) 60 MG TABLET.ER PO SCH (18:00)
[2021-11-06] MEDS ORDERED: Nicotine 21 MG PATCH.TD24 TD SCH (21:30)
[2021-11-07] MEDS: Piperacillin/Tazobactam 3.375 GM in 0.9 % Sodium Chloride Mini Bag 100 ML IVPB SCH ×5 (00:14→23:58)
[2021-11-07] MEDS: *HR* Heparin 5,000 UNIT/ML VIAL SQ SCH ×5 (00:14→23:57)
[2021-11-07] MEDS: *HR* OxyCODONE Immed Rel 5 MG TABLET PO PRN ×3 (00:15→15:29)
[2021-11-07] MEDS: Ipratropium/Albuterol Neb 3 ML IH SCH ×7 (00:17→23:12)
[2021-11-07] MEDS: *HR* OxyCODONE/APAP 10/325 TABLET PO PRN ×2 (02:27→05:12)
[2021-11-07] MEDS: Norepinephrine 4 MG/254 ML IV.SOLN IVC SCH (05:48)
[2021-11-07 05:53] LABS: Basophils % 0.1 %; Hematocrit 27.8 % (37.5-50.1); Hemoglobin 8.9 g/dL (12.9-16.9); Immature Granulocytes % 0.4 % (0-4); Lymphocytes # 0.8 K/mcL (0.6-4.6); Mean Corpuscular Hemoglobin 27.6 pg (28.0-33.3); Mean Corpuscular Volume 86.1 fL (83.0-100.0); Mean Platelet Volume 10.3 fL (9.4-12.4); Monocytes # 1.5 K/mcL (0.0-1.3); Monocytes % 12.7 %; Neutrophils # 9.1 K/mcL (1.6-8.9); Platelet Count 172 K/mcL (140-400); Red Blood Count 3.23 M/mcL (4.19-5.50); Red Cell Distribution Width 16.1 % (11.5-14.5); Segmented Neutrophils % 79.8 %; White Blood Count 11.5 K/mcL (4.3-11.1)
[2021-11-07 06:08] LABS: Alanine Aminotransferase 40 Units/L (7-52); Albumin 2.6 g/dL (3.5-5.7); Alkaline Phosphatase 43 Units/L (34-104); Aspartate Amino Transferase 89 Units/L (13-39); BUN/Creatinine Ratio 31 (6-26); Bilirubin,Direct 0.2 mg/dL (0.0-0.2); Bilirubin,Indirect 0.3 mg/dL (0.0-1.0); Bilirubin,Total 0.5 mg/dL (0.3-1.0); Blood Urea Nitrogen 18 mg/dL (8-23); Carbon Dioxide 27 mEq/L (23-29); Chloride 101 mEq/L (98-107); Globulin 2.7 g/dL (2.4-3.5); Glucose 119 mg/dL (70-105); Magnesium 1.8 mg/dL (1.6-2.6); Osmolality,Calculated 279 (280-300); Phosphorous 1.5 mg/dL (2.7-4.5); Potassium 3.6 mEq/L (3.5-5.1); Sodium 133 mEq/L (136-145); Total Protein 5.3 g/dL (6.4-8.9)
[2021-11-07] MEDS: Metoprolol XL (24 HR) Succ 25 MG TAB.ER.24H PO SCH (08:47)
[2021-11-07] MEDS: Gabapentin 300 MG CAPSULE PO SCH ×3 (08:47→19:57)
[2021-11-07 09:48] LABS: Enterococcus faecalis by PCR Not Detected (Not Detect); Enterococcus faecium by PCR Not Detected (Not Detect); mecA/C Methicillin-Resist Gene Not Detected (Not Detect)
[2021-11-07 09:49] LABS: A.calcoaceticus-baumannii cplx Not Detected (Not Detect); Bacteroides fragilis by PCR Not Detected (Not Detect); Candida albicans by PCR Not Detected (Not Detect); Candida auris by PCR Not Detected (Not Detect); Candida glabrata by PCR Not Detected (Not Detect); Candida krusei by PCR Not Detected (Not Detect); Candida parapsilosis by PCR Not Detected (Not Detect); Candida tropicalis by PCR Not Detected (Not Detect); Crypto. neoformans/gattii PCR Not Detected (Not Detect); Enterobacter cloacae Cmplx PCR Not Detected (Not Detect); Enterobacterales by PCR Not Detected (Not Detect); Escherichia coli by PCR Not Detected (Not Detect); Klebs. pneumoniae group by PCR Not Detected (Not Detect); Klebsiella aerogenes by PCR Not Detected (Not Detect); Klebsiella oxytoca by PCR Not Detected (Not Detect); Proteus by PCR Not Detected (Not Detect); Pseudomonas aeruginosa by PCR Not Detected (Not Detect); Salmonella species by PCR Not Detected (Not Detect); Serratia marcescens by PCR Not Detected (Not Detect); Staph epidermidis by PCR DETECTED (Not Detect); Staph lugdunensis by PCR Not Detected (Not Detect); Staphylococcus aureus by PCR Not Detected (Not Detect); Stenotrophomonas maltophilia Not Detected (Not Detect); Streptococcus agalactiae(B)PCR Not Detected (Not Detect); Streptococcus by PCR Not Detected (Not Detect); Streptococcus pneumoniae PCR Not Detected (Not Detect); Streptococcus pyogenes (A) PCR Not Detected (Not Detect)
[2021-11-07] MEDS: Morphine Sulfate ER (12 HR) 60 MG TABLET.ER PO SCH ×3 (10:25→23:58)
[2021-11-07] MEDS ORDERED: *HR* OxyCODONE/APAP 5/325 TABLET PO PRN (15:29)
[2021-11-07] MEDS ORDERED: *HR* OxyCODONE Immed Rel 5 MG TABLET PO PRN (15:30)
[2021-11-07] MEDS ORDERED: Sennosides/Docusate Sodium TABLET PO PRN (15:40)
[2021-11-07] MEDS ORDERED: Naloxone 0.4 MG/ML INJ IVP PRN (15:40)
[2021-11-07] MEDS ORDERED: Ondansetron 4 MG/2 ML VIAL IVP PRN (15:40)
[2021-11-07] MEDS ORDERED: Albuterol 2.5 MG/3 ML NEBULIZER IH PRN (15:40)
[2021-11-07] MEDS ORDERED: *HR* LORazepam 0.5 MG TABLET PO PRN (15:40)
[2021-11-07] MEDS ORDERED: Morphine Sulfate ER (12 HR) 60 MG TABLET.ER PO SCH (16:00)
[2021-11-07] MEDS ORDERED: Vancomycin 1,250 MG/262.5 ML IV.SOLN IVPB SCH (17:00)
[2021-11-07] MEDS: Nicotine 21 MG PATCH.TD24 TD SCH (19:57)
[2021-11-08] MEDS: Ipratropium/Albuterol Neb 3 ML IH SCH ×6 (03:53→23:54)
[2021-11-08 05:58] LABS: Basophils % 0.2 %; Eosinophils % 0.2 %; Hematocrit 28.5 % (37.5-50.1); Hemoglobin 9.3 g/dL (12.9-16.9); Immature Granulocytes % 0.5 % (0-4); Lymphocytes # 1.4 K/mcL (0.6-4.6); Lymphocytes % 14.4 %; Mean Corpuscular HGB Conc 32.6 g/dL (31.6-35.5); Mean Corpuscular Volume 85.8 fL (83.0-100.0); Mean Platelet Volume 9.6 fL (9.4-12.4); Monocytes # 1.4 K/mcL (0.0-1.3); Monocytes % 15.2 %; Neutrophils # 6.6 K/mcL (1.6-8.9); Platelet Count 188 K/mcL (140-400); Red Blood Count 3.32 M/mcL (4.19-5.50); Red Cell Distribution Width 16.2 % (11.5-14.5); Segmented Neutrophils % 69.5 %; White Blood Count 9.4 K/mcL (4.3-11.1)
[2021-11-08 06:24] LABS: BUN/Creatinine Ratio 24 (6-26); Blood Urea Nitrogen 12 mg/dL (8-23); Calcium 7.7 mg/dL (8.6-10.3); Carbon Dioxide 28 mEq/L (23-29); Chloride 102 mEq/L (98-107); Glucose 121 mg/dL (70-105); Osmolality,Calculated 277 (280-300); Potassium 3.7 mEq/L (3.5-5.1); Sodium 133 mEq/L (136-145)
[2021-11-08] MEDS: Metoprolol XL (24 HR) Succ 25 MG TAB.ER.24H PO SCH (08:01)
[2021-11-08] MEDS: *HR* Heparin 5,000 UNIT/ML VIAL SQ SCH ×3 (08:01→22:57)
[2021-11-08] MEDS: Morphine Sulfate ER (12 HR) 60 MG TABLET.ER PO SCH ×3 (08:01→22:55)
[2021-11-08] MEDS: Aspirin Enteric Coated 81 MG Tablet PO SCH (08:02)
[2021-11-08] MEDS: Gabapentin 300 MG CAPSULE PO SCH ×3 (08:02→20:02)
[2021-11-08] MEDS: Piperacillin/Tazobactam 3.375 GM in 0.9 % Sodium Chloride Mini Bag 100 ML IVPB SCH ×3 (08:02→22:55)
[2021-11-08] MEDS ORDERED: *HR* OxyCODONE Immed Rel 5 MG TABLET PO PRN (09:40)
[2021-11-08] MEDS: *HR* OxyCODONE/APAP 10/325 TABLET PO PRN ×2 (10:53→16:55)
[2021-11-08] MEDS: Vancomycin 1,250 MG/262.5 ML IV.SOLN IVPB SCH (16:55)
[2021-11-08] MEDS: Nicotine 21 MG PATCH.TD24 TD SCH (20:02)
[2021-11-09 02:05] LABS: Basophils % 0.2 %; Eosinophils # 0.1 K/mcL (0.0-0.6); Eosinophils % 0.7 %; Hematocrit 30.1 % (37.5-50.1); Hemoglobin 9.7 g/dL (12.9-16.9); Immature Granulocytes % 0.6 % (0-4); Lymphocytes # 1.5 K/mcL (0.6-4.6); Lymphocytes % 15.7 %; Mean Corpuscular HGB Conc 32.2 g/dL (31.6-35.5); Mean Platelet Volume 9.9 fL (9.4-12.4); Monocytes # 1.5 K/mcL (0.0-1.3); Monocytes % 16.3 %; Neutrophils # 6.2 K/mcL (1.6-8.9); Platelet Count 229 K/mcL (140-400); Red Blood Count 3.46 M/mcL (4.19-5.50); Red Cell Distribution Width 16.5 % (11.5-14.5); Segmented Neutrophils % 66.5 %; White Blood Count 9.4 K/mcL (4.3-11.1)
[2021-11-09 02:24] LABS: BUN/Creatinine Ratio 22 (6-26); Blood Urea Nitrogen 11 mg/dL (8-23); Calcium 7.7 mg/dL (8.6-10.3); Carbon Dioxide 28 mEq/L (23-29); Chloride 102 mEq/L (98-107); Glucose 118 mg/dL (70-105); Osmolality,Calculated 280 (280-300); Potassium 3.7 mEq/L (3.5-5.1); Sodium 135 mEq/L (136-145)
[2021-11-09] MEDS: Vancomycin 1,250 MG/262.5 ML IV.SOLN IVPB SCH (04:18)
[2021-11-09] MEDS: Ipratropium/Albuterol Neb 3 ML IH SCH ×4 (04:23→15:13)
[2021-11-09] MEDS: *HR* OxyCODONE/APAP 10/325 TABLET PO PRN ×2 (04:25→12:29)
[2021-11-09] MEDS: Morphine Sulfate ER (12 HR) 60 MG TABLET.ER PO SCH ×2 (08:02→15:33)
[2021-11-09] MEDS: Aspirin Enteric Coated 81 MG Tablet PO SCH (08:02)
[2021-11-09] MEDS: Gabapentin 300 MG CAPSULE PO SCH ×2 (08:02→15:33)
[2021-11-09] MEDS: Metoprolol XL (24 HR) Succ 25 MG TAB.ER.24H PO SCH (08:02)
[2021-11-09] MEDS: *HR* Heparin 5,000 UNIT/ML VIAL SQ SCH ×2 (08:03→15:33)
[2021-11-09] MEDS: Piperacillin/Tazobactam 3.375 GM in 0.9 % Sodium Chloride Mini Bag 100 ML IVPB SCH ×2 (08:03→15:17)
[2021-11-09 11:21] VITALS: TEMP 100.3
[2021-11-09 15:16] VITALS: BP 120/75; PULSE 102; O2SAT 95
[2021-11-10] MEDS ORDERED: Bisacodyl 10 MG RECTAL SUPPOSITORY RC ONE (15:25)
== END 2021-11-09 16:45 | disposition hospice, home (50) | DRG 871 ==
LOC: EMEROOARM 07:29 → SUATTDRO 13:31 → ICNU 13:31
PROVIDERS: ADMIT Pediatrics; ATTEND Family Medicine